=== PATIENT | male | born 1995 | race Caucasian/White ===

== ENCOUNTER 2023-09-18 12:09 | Emergency (ER) | payer MEDICARE, MEDICAID, SELFPAY ==
[2023-09-18 12:11] VITALS: BP 125/95; PULSE 100; RESP 16; TEMP 36.4; O2SAT 100; BMI 27.8
--- NOTE | 2023-09-18 13:04 | EKG12_ITS ---
Test Reason : PALP Blood Pressure : / mmHG Vent. Rate : 101 BPM Atrial Rate : 101 BPM P-R Int : 134 ms QRS Dur : 084 ms QT Int : 334 ms P-R-T Axes : 056 031 037 degrees QTc Int : 433 ms Sinus tachycardia Otherwise normal ECG Confirmed by Tre Candelario ([id number]), assignment desk editor TONG MIGUEL ([id number]) on 09/19/2023 8:33:06 AM Referred By: Confirmed By:Tre Candelario
--- NOTE | 2023-09-18 13:11 | ED.VIS.CHEST ---
HPI History of Present Illness Chief Complaint: Palpitations Informant: patient Onset/Context/Timing Onset: Today, Hours and - (11:30 AM today at workshop.) Activity at onset: sudden Timing: Continuous Current Severity: Mild Maximum Severity: Mild Relieved By: Nothing Associated Symptoms: Negative for Nausea, Vomiting, Diaphoresis, Dyspnea, Cough, Fever, Lightheadedness, Acid Reflux or Palpitations Narrative Narrative: 28-year-old male history of PTSD and OCD. Was at workshop today resulting in palpitations. Denies any chest pain. No shortness of breath. He did not lose consciousness. Been well recently did run out of 1 episode of diarrhea in the last couple days. No melena. No history of cardiac disease. No chest pain. No hemoptysis. No leg pain or swelling. Prior Similar Symptoms: Yes and No Recent Illness/Hospitalization: No CVD Risk Factors: Negative for Hypertension or Diabetes PE Risk Factors: Negative for Recent Travel/Surgery, Recent Immobilization, Prior DVT or PE, Cancer or OCP + Smoking + >/=35 TAD Risk Factors: Negative for Marfan's Syndrome, Hypertension or Family History [facility] Medical History (Updated 09/18/23 @ 14:[address] Dawson Barnett MD) Idiopathic moderate intellectual disability PTSD (post-traumatic stress disorder) Allergy/AdvReac Type Severity Reaction Status Date / Time Seasonal Allergies: Uncoded AdvReac RUNNY NOSE Verified 09/18/23 12:14 Social History Smoking Status: Never smoker ROS ROS ED ROS Narrative No recent illness other than mild diarrhea yesterday. Review of Systems ROS Unobtainable: Denies due to encephalopathy Constitutional Constitutional ED: Denies chills or fever(s) Eyes Eyes: Reports none ENT ENT ED: Denies ear pain Cardiovascular Cardiovascular: Reports as per HPI and palpitations; Denies chest pain Respiratory/Chest Respiratory/Chest: Denies cough, dyspnea or dyspnea on exertion Gastrointestinal Gastrointestinal: Denies abdominal pain Genitourinary Genitourinary ED: Denies dysuria or hematuria Musculoskeletal Musculoskeletal: Denies arthralgias, back pain or myalgias Integumentary Denies abscess or Abrasions Neurologic Neurologic: Denies headache(s) Psychiatric Psychiatric: Denies anxiety Endocrine Endocrinology: Denies cold intolerance Hematologic/Lymphatic Hematologic/Lymphatic: Denies easy bleeding, easy bruising or lymphadenopathy Allergic/Immunologic Allergic/Immunologic ED: Denies mouth swelling, tongue swelling or urticaria EXAM Physical Exam Narrative Exam Narrative: Well-appearing 28-year-old male. Vital signs stable afebrile. Pulse ox 100% room air no signs of hypoxia. Pulse 100. H EENT exam unremarkable. Neck nontender no JVD. No lymphadenopathy. No thyromegaly. Lungs clear to auscultation bilaterally. Heart regular rate and rhythm rate about 95 no murmur. Chest wall and ribs nontender. Abdomen soft nontender. Moving all 4 extremities. Calves are nontender without edema or cords. 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 Dorsi plantarflexion intact. Equal symmetrical radial pulses. Neurologically is awake and alert with no focal motor deficits. Const Vital Signs: 09/18/23 12:11 09/18/23 13:15 Temperature 97.6 F L Temperature Source Temporal Pulse Rate 100 Respiratory Rate 16 Blood Pressure 125/95 H Blood Pressure Mean 105 Pulse Ox 100 Oxygen Delivery Method Room Air Room Air Positive well nourished and well developed; Negative for obese, cachectic, contractures or unkempt General Appearance ED: well developed and NAD; Negative for unkempt, cachectic, contractures or pallor Nutritional Appearance: Negative for cachectic or obese HEENT Reports moist mucous membranes; Denies dry mucous membranes normocephalic and atraumatic; Negative for trauma or tenderness Mouth ED: No dry mucous membranes Mouth: No dry mucous membranes Eyes PERRL and EOMs intact bilaterally General Eye ED: Negative for pale conjunctiva, scleral icterus or other Neck no lymphadenopathy, supple and no JVD General: Negative for tenderness Chest Wall inspection of chest normal and palpation of chest normal Chest: Negative for tenderness Resp normal respiratory effort and clear to auscultation bilaterally Effort and Inspection: Negative for respiratory distress Auscultation: Negative for rales, rhonchi, wheezes or diminished lung sounds Cardio regular rate, regular rhythm, S1 normal heart sound, S2 normal heart sound and no murmurs Rate: Negative for bradycardia or tachycardic Rhythm: Negative for abnormal rhythm Peripheral Pulses: pulses 2+ throughout GI normal to inspection, nondistended, normoactive bowel sounds, soft to palpation, non-tender, non-distended and no masses Back/Spine no CVA tenderness and no thoracic nor lumbar tenderness General Back: Negative for CVA tenderness Cervical Spine: Negative for cervical spine tenderness Extremity normal to inspection General Extremety ED: Negative for pulses abnormal or tenderness General Extremity: Negative for pulses abnormal Neuro oriented x3 and CN's II-XII intact bilaterally Sensorium / Orientation: awake, alert, oriented to person, oriented to place and oriented to time; Negative for confused, lethargic, stuporous or other Motor Exam: strength 5/5 throughout Psych mental status grossly normal Appearance: Negative for unkempt Attitude: No agitated Mood & Affect: Negative for depressed, anxious or tearful Skin no rashes or lesions noted and no wounds General Skin Exam: Negative for jaundice or pallor Rashes: No rashes noted Trauma: Negative for abrasion, laceration or puncture MDM MDM MDM Narrative Medical decision making narrative: 28-year-old male with palpitations. Exam is normal. Undergo cardiac workup. Repeat exam patient is doing well at 2:14 PM. Vital signs are stable. Heart rates unremarkable. We went over his test results. He will be discharged home. History & Record Review Discussion w/independent historian: Patient Additional record(s) reviewed:: Prior inpatient record, Prior outpatient record, Prior ED visit and Prior labs Lab Data Attestation: I reviewed the patient's lab results. Lab results narrative: CBC shows white count 6.7. H&H 12.8 and 38.9. Platelets 266. Electrolytes unremarkable gap 5. Normal BUN 9 creatinine 0.99. Glucose 139. Troponin less than 3. Chest x-ray unremarkable. Normal cardiac silhouette and lung haile. Labs: Laboratory Results - last 24 hr 09/18/23 13:12 WBC 6.7 RBC 4.19 L Hgb 12.8 L Hct 38.9 L MCV 92.8 MCH 30.5 MCHC 32.9 RDW Std Deviation 47.3 H RDW Coeff of Hakan 13.9 Plt Count 266 MPV 9.5 Immature Gran % (Auto) 0.900 Neut % (Auto) 66.7 Lymph % (Auto) 22.3 [place] % (Auto) 7.9 Eos % (Auto) 1.3 Baso % (Auto) 0.9 Absolute Neuts (auto) 4.4 Absolute Lymphs (auto) 1.49 Nucleated RBC % 0 Sodium 138 Potassium 4.2 Chloride 106 Carbon Dioxide 27.0 Anion Gap 5 BUN 9 Creatinine 0.99 Estim Creat Clear Calc 112.90 Est GFR (MDRD) Af Amer 115 Est GFR (MDRD) Non-Af 95 BUN/Creatinine Ratio 9.1 L Glucose 139 H Calcium 9.1 Troponin I High Sens < 3 L Radiography Chest X-Ray - ED: 1 View, Read by ED Physician, Read by Radiologist, Normal, Heart, Lungs, Mediastinum, Bony Structures and No Acute Disease Diagnostic Testing: Clinical Impression(s) from Imaging Studies Chest X-Ray 09/18/23 13:13 IMPRESSION: Normal x-ray examination of the chest. Electronically Signed: Ortiz Kerns MD at 13:37 EDT Reading Location ID and State: [id number] [place] [address] , Service support , Chest x-ray, portable, single view interpreted by myself and the radiologist shows no acute abnormality. Normal cardiac silhouette. Normal lung haile. Rhythm Strip Rhythm Strip: Sinus Tach Rate: 101 Ectopy: None EKG Initial EKG: Attestation: I personally reviewed and interpreted this EKG as follows: Interpretation: Sinus Rhythm, No Acute Injury Pattern and Sinus Tachycardia Comments: Sinus tachycardia rate of 101 no acute signs of MT nor ischemia. No dysrhythmia. Discharge Plan Triage Chief Complaint: Palpitations ED Provider: Dawson Barnett Dx/Rx/DC Orders Clinical Impression: Heart palpitations Instructions: ED Palpitations Primary Care Provider: Husam Pérez NP Referrals: Husam Pérez COMPLIANCE ASSISTANT, COMPLIANCE ASSISTANT-C [Primary Care Provider] - As Needed Activity Restrictions/Additional Instructions: Follow-up with your primary care provider as needed. Your labs, x-ray and EKG were all normal today. Print Language: Wolof Disposition Disposition: Home, Self Care
--- NOTE | 2023-09-18 13:13 | RAD_ITS ---
STUDY: X-RAY CHEST REASON FOR EXAM: Male, 28 years old. Chest pain. TECHNIQUE: Single frontal view of the chest. COMPARISON: None. FINDINGS: The lungs are clear and expanded. There is no demonstrated pleural abnormality. Normal size heart. Normal mediastinum and alexi. Normal visualized pulmonary arteries. Normal visualized aortic arch and descending thoracic aorta. No abnormality of the visualized soft tissue structures of the upper abdomen. RAD/Chest 1 View (Portable) IMPRESSION: Normal x-ray examination of the chest. Electronically Signed: Ortiz Kerns MD at 13:37 EDT ,
[2023-09-18 13:18] LABS: Absolute Lymphocyte Count 1.49 X10^3/uL (0.83-4.51); Absolute Neutrophil Count 4.4 X10^3/uL (2.0-7.7); Basophil# 0.06 X10^3/uL; Basophil% 0.9 % (0-1); Eosinophil# 0.09 X10^3/uL; Eosinophils% 1.3 % (0-5); Hematocrit 38.9 % (40-54); Hemoglobin 12.8 g/dL (13.0-16.5); Lymphocyte # 1.49 X10^3/ul (0.83-4.51); Lymphocyte % 22.3 % (19-41); Mean Corp Hgb Conc 32.9 g/dL (32-36); Mean Corpuscular Hgb 30.5 pg (27.0-32.0); Mean Corpuscular Volume 92.8 fL (80-94); Mean Platelet Vol. 9.5 fl (6.2-12.0); Monocyte# 0.53 X10^3/uL; Monocyte% 7.9 % (0-10); NRBC Flagged by Analyzer 0 % (0-5); Neutrophil # 4.44 X10^3/uL (2.7-7.7); Neutrophil % 66.7 % (47-70); Platelet Count 266 K/mm3 (150-450); RBC Distribution Width CV 13.9 % (11.6-14.6); RBC Distribution Width SD 47.3 fl (35.1-43.9); Red Blood Count 4.19 M/mm3 (4.6-6.2); White Blood Count 6.7 K/mm3 (4.4-11.0)
--- NOTE | 2023-09-18 13:29 | ED.RN ---
NO OLD EKGS
[2023-09-18 13:42] LABS: Anion Gap 5 (5-15); BUN 9 mg/dL (7-18); BUN/Creat Ratio 9.1 RATIO (10-20); Calcium,Total 9.1 mg/dL (8.5-10.1); Chloride 106 mmol/L (98-107); Creatinine, Serum 0.99 mg/dL (0.70-1.30); EST Glomerular Filtration Rate 95 mL/min (>60); Est Glom Filt Rate - Afr Amer 115 mL/min (>60); Glucose 139 mg/dL (74-106); Potassium 4.2 mmol/L (3.5-5.1); Sodium Level 138 mmol/L (136-145); Troponin-I HS < 3 pg/mL (3.0-78.0)
[2023-09-18 14:25] VITALS: BP 114/74; PULSE 93; RESP 23; TEMP 36.4; O2SAT 100
== END 2023-09-18 14:27 | disposition home or self-care (01) ==
PROVIDERS: Emergency Provider Emergency Medicine; PCP Nurse Practitioner Family; Visit Provider Emergency Medicine
DX: R00.2 Palpitations (principal)
CPT/HCPCS: 71045; 80048; 84484; 85025; 93005; 99284; A4216

== ENCOUNTER 2024-04-12 08:36 | Emergency (ER) | payer MEDICARE, MEDICAID, SELFPAY ==
[2024-04-12 08:36] VITALS: BP 125/90; PULSE 112; RESP 18; TEMP 36.6; O2SAT 100
[2024-04-12 08:39] VITALS: BMI 30.1
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
[2024-04-12 09:09] VITALS: BP 125/90; PULSE 95; RESP 16; TEMP 36.7; O2SAT 100
== END 2024-04-12 09:17 | disposition home or self-care (01) ==
LOC: ED 09:11
PROVIDERS: Emergency Provider Emergency Medicine; PCP Nurse Practitioner Family; Visit Provider Emergency Medicine
DX: S29.011A Strain of muscle and tendon of front wall of thorax, initial encounter (principal); S29.012A Strain of muscle and tendon of back wall of thorax, initial encounter; V58.1XXA Passenger in pick-up truck or van injured in noncollision transport accident in nontraffic accident, initial encounter; Z79.899 Other long term (current) drug therapy
CPT/HCPCS: 99282

== ENCOUNTER 2024-05-09 08:16 | Outpatient (CLI) | payer MEDICARE, MEDICAID, SELFPAY ==
[2024-05-09 12:41] LABS: Valproic Acid (Depakene) Level 47 ug/mL (50-100)
[2024-05-09 12:45] LABS: ALB/GLOB Ratio 1.2 RATIO (0.9-2.4); AST(SGOT) 15 U/L (15-37); Alanine Aminotransfer ALT/SGPT 25 U/L (16-61); Albumin, Serum 3.8 g/dL (3.2-5.0); Alkaline Phosphatase 53 U/L (45-117); Anion Gap 6 (5-15); BUN 8 mg/dL (7-18); BUN/Creat Ratio 8.4 RATIO (10-20); Calcium,Total 9.2 mg/dL (8.5-10.1); Chloride 105 mmol/L (98-107); Creatinine, Serum 0.96 mg/dL (0.70-1.30); EST Glomerular Filtration Rate 99 mL/min (>60); Est Glom Filt Rate - Afr Amer 120 mL/min (>60); Globulin 3.1 g/dL (2.2-4.2); Glucose 87 mg/dL (74-106); Protein, Total 6.9 g/dL (6.4-8.2); Sodium Level 140 mmol/L (136-145)
[2024-05-09 12:51] LABS: Absolute Lymphocyte Count 1.97 X10^3/uL (0.83-4.51); Absolute Neutrophil Count 1.9 X10^3/uL (2.0-7.7); Basophil# 0.05 X10^3/uL; Basophil% 1.1 % (0-1); Eosinophil# 0.21 X10^3/uL; Eosinophils% 4.6 % (0-5); Hematocrit 40.8 % (40-54); Hemoglobin 13.4 g/dL (13.0-16.5); Lymphocyte # 1.97 X10^3/ul (0.83-4.51); Lymphocyte % 42.8 % (19-41); Mean Corp Hgb Conc 32.8 g/dL (32-36); Mean Corpuscular Hgb 30.5 pg (27.0-32.0); Mean Corpuscular Volume 92.9 fL (80-94); Mean Platelet Vol. 10.1 fl (6.2-12.0); Monocyte# 0.46 X10^3/uL; NRBC Flagged by Analyzer 0 % (0-5); Neutrophil # 1.89 X10^3/uL (2.7-7.7); Neutrophil % 41.1 % (47-70); Platelet Count 301 K/mm3 (150-450); RBC Distribution Width CV 12.6 % (11.6-14.6); RBC Distribution Width SD 43.1 fl (35.1-43.9); Red Blood Count 4.39 M/mm3 (4.6-6.2); White Blood Count 4.6 K/mm3 (4.4-11.0)
== END 2024-05-09 23:59 | disposition home or self-care (01) ==
LOC: LABSPEC 08:17
PROVIDERS: PCP Nurse Practitioner Family; Visit Provider Internal Medicine
DX: F90.9 Attention-deficit hyperactivity disorder, unspecified type (principal); F39 Unspecified mood [affective] disorder; F42.9 Obsessive-compulsive disorder, unspecified
CPT/HCPCS: 80053; 80164; 85025

== ENCOUNTER → 2024-08-01 | Outpatient (CLI) | payer MEDICARE, MEDICAID, SELFPAY ==
[2024-08-01 12:31] LABS: Hematocrit 36.6 % (40-54); Mean Corp Hgb Conc 32.8 g/dL (32-36); Mean Corpuscular Hgb 30.3 pg (27.0-32.0); Mean Corpuscular Volume 92.4 fL (80-94); Mean Platelet Vol. 10.5 fl (6.2-12.0); Platelet Count 280 K/mm3 (150-450); RBC Distribution Width CV 13.2 % (11.6-14.6); RBC Distribution Width SD 44.7 fl (35.1-43.9); Red Blood Count 3.96 M/mm3 (4.6-6.2); White Blood Count 4.9 K/mm3 (4.4-11.0)
[2024-08-01 13:11] LABS: ALB/GLOB Ratio 1.8 RATIO (0.9-2.4); AST(SGOT) 17 U/L (<=37); Alanine Aminotransfer ALT/SGPT 19 U/L (<=46); Albumin, Serum 4.1 g/dL (3.5-5.0); Alkaline Phosphatase 53 U/L (40-129); Anion Gap 14 (5-15); BUN 6 mg/dL (4-19); Calcium,Total 9.5 mg/dL (7.6-11.0); Chloride 102 mmol/L (98-108); Creatinine, Serum 0.88 mg/dL (0.70-1.20); EST Glomerular Filtration Rate 119 (>60); Globulin 2.3 g/dL (2.2-4.2); Glucose 146 mg/dL (70-99); Potassium 3.5 mmol/L (3.3-5.1); Protein, Total 6.4 g/dL (5.9-8.4); Sodium Level 139 mmol/L (133-145); Total Bilirubin 0.33 mg/dL (0.00-1.30); Valproic Acid (Depakene) Level 47 ug/mL (50-100)
== END | disposition home or self-care (01) ==
LOC: LABSPEC 08:32
PROVIDERS: PCP Nurse Practitioner Family; Referring Provider Internal Medicine; Visit Provider Internal Medicine
DX: F90.9 Attention-deficit hyperactivity disorder, unspecified type (principal); F39 Unspecified mood [affective] disorder; F42.9 Obsessive-compulsive disorder, unspecified
CPT/HCPCS: 80053; 80164; 85027

== ENCOUNTER → 2024-10-24 | Outpatient (CLI) | payer MEDICARE, MEDICAID, SELFPAY ==
--- OUTSIDE RECORDS SUMMARY | 2024-10-24 07:37 | XMS RPT_ITS | CCD ---
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 2.2-4.2 [facility] Comment on above: Performed By: #### L 501.8100, [id number], L100.0500 #### [facility] [address] [place], [address] Glucose [Mass/Vol] 146 mg/dL High 70-99 [facility] [place] [facility] Comment on above: Performed By: #### L [id number], [id number], L100.0500 #### [facility] [address] [place], [address] Potassium [Moles/Vol] 3.5 mmol/L Normal 3.3-5.1 [facility] Comment on above: Performed By: #### L 501.8100, [id number], L100.0500 #### [facility] [address] [place], [address] Sodium [Moles/Vol] 139 mmol/L Normal 133-145 [facility] [place] [facility] Comment on above: Performed By: #### L 501.8100, [id number], L100.0500 #### [facility] [address] [place], [address] T PROT 6.4 g/dL Normal 5.9-8.4 [facility] Comment on above: Performed By: #### L [id number], [id number], L100.0500 #### [facility] [address] [place], [address] Urea nitrogen [Mass/Vol] 6 mg/dL Normal 4-19 [facility] Comment on above: Performed By: #### L [id number], [id number], L100.0500 #### [facility] [address] [place], [address] Erythrocyte distribution wid th ratioOrdered By: Mendez Kumar on 08-01-2024 Erythrocyte distribution width (RBC) [Ratio] 13.2 % 11.6-14.6 [facility] Erythrocyte distribution wid th standard deviationOrdered By: Mendez Kumar on 08-01-2024 Erythrocyte distribution width (RBC) [Ratio] 44.7 fl High 35.1-43.9 [facility] Glomerular filtration rate ( GFR) estimation/1.73 sq m using serum, plasma, or whole bOrdered By: Mendez Kumar on 08-01-2024 GFR/1.73 sq M.predicted among non-blacks MDRD (S/P/Bld) [Vol rate/Area] 119 mL/min/{1.73_m2} >60 [facility] Comment on above: mL/min/1.73m2 CKD-EP I Creatinine Equation (2020) Hematocrit Auto (Bld) [Volum e fraction]Ordered By: Mnedez Kumar on 08-01-2024 Hematocrit (Bld) [Volume fraction] 36.6 % Low 40-54 [facility] Hemoglobin measurementOrdere d By: Mendez Kumar on 08-01-2024 Hemoglobin (Bld) [Mass/Vol] 12.0 g/dL Low 13.0-16.5 [facility] Laboratory - Chemistry and C hemistry - challengeOrdered By: Mendez Kumar on 08-01-2024 AST [Catalytic activity/Vol] 17 U/L <38 [facility] MCV (mean corpuscular volume ) determinationOrdered By: Mendez Kumar on 08-01-2024 MCV (RBC) [Entitic vol] 92.4 fL 80-94 [facility] Mean corpuscular hemoglobin (MCH) determinationOrdered By: Mendez Kumar on 08-01-2024 MCH (RBC) [Entitic mass] 30.3 pg 27.0-32.0 [facility] Mean corpuscular hemoglobin concentration (MCHC) determinationOrdered By: Mendez Kumar on 08-01-2024 MCHC (RBC) [Mass/Vol] 32.8 g/dL 32-36 [facility] Mean platelet volume determi nationOrdered By: Mendez Kumar on 08-01-2024 Platelet mean volume (Bld) [Entitic vol] 10.5 fL 6.2-12.0 [facility] Platelet countOrdered By: Rosalina Kumar on 08-01-2024 Platelets (Bld) [#/Vol] 280 10*3/uL 150-450 [facility] Potassium measurement (mass/ volume)Ordered By: Mendez Kumar on 08-01-2024 Potassium (Unsp spec) [Mass/Vol] 3.5 mmol/L 3.3-5.1 [facility] RBC Auto (Bld) [#/Vol]Ordere d By: Mendez Kumar on 05-15-2025 RBC (Bld) [#/Vol] 3.96 10*6/uL Low 4.6-6.2 [facility] Serum creatinine measurement (mass/volume)Ordered By: Mendez Kumar on 08-01-2024 Creatinine [Mass/Vol] 0.88 mg/dL 0.70-1.20 [facility] Serum globulin measurementOr dered By: Mendez Kumar on 08-01-2024 Globulin (S) [Mass/Vol] 2.3 g/dL 2.2-4.2 [facility] Serum glucose measurement (m ass/volume)Ordered By: Mendez Kumar on 08-01-2024 Glucose [Mass/Vol] 146 mg/dL High 70-99 [facility] [place] [facility] Serum or plasma alanine mendosa otransferase (ALT) measurementOrdered By: Mendez Kumar on 08-01-2024 ALT [Catalytic activity/Vol] 19 U/L <47 [facility] Serum or plasma albumin rina urement (mass/volume)Ordered By: Mendez Kumar on 08-01-2024 Albumin [Mass/Vol] 4.1 g/dL 3.5-5.0 [facility] [place] [facility] Serum or plasma albumin/glob ulin mass ratioOrdered By: Mendez Kumar on 08-01-2024 Albumin/Globulin [Mass ratio] 1.8 {ratio} 0.9-2.4 [facility] Serum or plasma alkaline brandie sphatase measurementOrdered By: Mendez Kumar on 08-01-2024 ALP [Catalytic activity/Vol] 53 U/L 40-129 [facility] Serum or plasma calcium rina urement (mass/volume)Ordered By: Mendez Kumar on 08-01-2024 Calcium [Mass/Vol] 9.5 mg/dL 7.6-11.0 [facility] [place] [facility] Serum or plasma urea nitroge n measurement (mass/volume)Ordered By: Mendez Kumar on 08-01-2024 Urea nitrogen [Mass/Vol] 6 mg/dL 4-19 [facility] Serum or plasma valproate me asurement (mass/volume)Ordered By: Mendez Kumar on 08-01-2024 Valproate [Mass/Vol] 47 ug/mL Low 50-100 [facility] Comment on above: Valproic Acid concen trations >100 ug/mL are potentially toxic. Sodium levelOrdered By: Zan Kumar on 08-01-2024 Sodium [Moles/Vol] 139 mmol/L 133-145 [facility] [place] [facility] Total proteinOrdered By: Asher Kumar on 08-01-2024 Protein [Mass/Vol] 6.4 g/dL 5.9-8.4 [facility] [place] [facility] Valproic Acid (Depakene) Lev linsey 08-01-2024 VALPROIC ACID 47 ug/mL Low 50-100 [facility] Comment on above: Result Comment: Valp roic Acid concentrations >100 ug/mL are potentially toxic. Performed By: #### L [id number], L500.4050, L100.0500 #### [facility] [address] [place], [address] White blood cell (WBC) count Ordered By: Mendez Kumar on 08-01-2024 WBC (Bld) [#/Vol] 4.9 10*3/uL 4.4-11.0 [facility] [place] [facility] .GFRon 06-20-2024 Estimated Glomerular Filtration Rate 99 ml/min/1.73sqm Normal [facility] Comment on above: Result Comment: Stages of Chronic Kidney Disease (CKD) Stage Description eGFR(ml/min/1.73 sq.m.) CKD 1 Normal kidney function or >=90 normal kindney function with possible kidney damage (ex. Proteinuria) CKD 2 Kidney damage with mild loss 60-89 of kidney function CKD 3a Mild to moderate loss of kidney 45-59 function CKD 3b Moderate to severe loss of 30-44 of kindey function CKD 4 Severe loss of kidney function 15-29 CKD 5 Kidney failure <15 Note: (go live 2024) the eGFR calculation was updated to the 2020 CKD-EPI creatinine equation without a race factor to calculate the eGFR results. Performed By: #### L IPID, GFR, A1C, CMP, TSH, FT4, DLDL #### [facility] [address] [place], [place] [address] A1Con 06-20-2024 Glucose [Mass/Vol] 100 mg/dL Normal [facility] Comment on above: Result Comment: Luz Maria mated Average Glucose calculated by equation ((28.7xA1C)-46.7) Estimated average glucose (eAG) is a calculated value from Hemoglobin A1C and is congressional representative of the average blood glucose level in the last 2-3 month period. Normal range: less than 114 mg/dL Performed By: #### L IPID, GFR, A1C, CMP, TSH, FT4, DLDL #### [address] [address] HbA1c (Bld) [Mass fraction] 5.1 % Normal 4.3-6.4 [facility] Comment on above: Performed By: #### L IPID, GFR, A1C, CMP, TSH, FT4, DLDL #### [address] [address] CMPon 06-20-2024 Albumin Level 3.9 G/dL Normal 3.5-5.0 [facility] Comment on above: Performed By: #### L IPID, GFR, A1C, CMP, TSH, FT4, DLDL #### [address] [address] Albumin/Globulin [Mass ratio] 1.2 {ratio} Normal 1.1-2.5 [facility] Comment on above: Performed By: #### L IPID, GFR, A1C, CMP, TSH, FT4, DLDL #### [address] [address] ALP [Catalytic activity/Vol] 66 U/L Normal 40-135 [facility] Comment on above: Performed By: #### L IPID, GFR, A1C, CMP, TSH, FT4, DLDL #### [address] [address] ALT [Catalytic activity/Vol] 31 U/L Normal 16-63 [facility] Comment on above: Performed By: #### L IPID, GFR, A1C, CMP, TSH, FT4, DLDL #### [address] [address] AST [Catalytic activity/Vol] 18 U/L Normal 10-40 [facility] Comment on above: Performed By: #### L IPID, GFR, A1C, CMP, TSH, FT4, DLDL #### [address] [address] Bili Total 0.3 mg/dL Normal 0.2-1.0 [facility] Comment on above: Result Comment: Use of this assay is not recommended for patients undergoing treatment with eltrombopag due to the potential for falsely elevated results. Performed By: #### L IPID, GFR, A1C, CMP, TSH, FT4, DLDL #### [address] [address] BUN/Creatinine Ratio 7 ratio Normal 7-27 [facility] Comment on above: Performed By: #### L IPID, GFR, A1C, CMP, TSH, FT4, DLDL #### [address] [address] Calcium [Mass/Vol] 8.6 mg/dL Normal 8.4-10.2 [facility] Comment on above: Performed By: #### L IPID, GFR, A1C, CMP, TSH, FT4, DLDL #### [address] [address] Chloride [Moles/Vol] 104 mmol/L Normal 98-107 [facility] Comment on above: Performed By: #### L IPID, GFR, A1C, CMP, TSH, FT4, DLDL #### [address] [address] CO2 [Moles/Vol] 28 mmol/L Normal 22-29 [facility] Comment on above: Performed By: #### L IPID, GFR, A1C, CMP, TSH, FT4, DLDL #### [address] [address] Creatinine [Mass/Vol] 1.05 mg/dL Normal 0.70-1.30 [facility] Comment on above: Result Comment: Test ing performed on Siemens Dimension EXL analyzer using a modified kinetic Robbie technique. Performed By: #### L IPID, GFR, A1C, CMP, TSH, FT4, DLDL #### [address] [address] Electrolyte Balance 7.0 mEq/L Normal 4.0-15.0 [facility] Comment on above: Performed By: #### L IPID, GFR, A1C, CMP, TSH, FT4, DLDL #### [address] [address] Globulin 3.3 G/dL Normal 1.5-3.8 [facility] Comment on above: Performed By: #### L IPID, GFR, A1C, CMP, TSH, FT4, DLDL #### [address] [address] Glucose [Mass/Vol] 143 mg/dL High 70-105 [facility] Comment on above: Performed By: #### L IPID, GFR, A1C, CMP, TSH, FT4, DLDL #### [address] [address] Potassium [Moles/Vol] 4.0 mmol/L Normal 3.5-5.1 [facility] Comment on above: Performed By: #### L IPID, GFR, A1C, CMP, TSH, FT4, DLDL #### [address] [address] Sodium [Moles/Vol] 139 mmol/L Normal 136-145 [facility] Comment on above: Performed By: #### L IPID, GFR, A1C, CMP, TSH, FT4, DLDL #### [address] [address] Total Protein 7.2 G/dL Normal 6.4-8.2 [facility] Comment on above: Performed By: #### L IPID, GFR, A1C, CMP, TSH, FT4, DLDL #### [address] [address] Urea nitrogen [Mass/Vol] 7 mg/dL Normal 7-18 [facility] Comment on above: Performed By: #### L IPID, GFR, A1C, CMP, TSH, FT4, DLDL #### [address] [address] DLDLon 06-20-2024 Direct LDL Cholesterol 102 mg/dL High 0-99 [facility] Comment on above: Result Comment: Dire ct LDL Cholesterol Reference Interval: Optimal: <100 mg/dL Near Optimal/above optimal: 100-129 mg/dL Borderline high: 130-159 mg/dL High: 160-189 mg/dL Very high: >=190 mg/dL Performed By: #### L IPID, GFR, A1C, CMP, TSH, FT4, DLDL #### [address] [address] FT4on 06-20-2024 Free T4 [Mass/Vol] 0.73 ng/dL Low 0.76-1.46 [facility] Comment on above: Performed By: #### L IPID, GFR, A1C, CMP, TSH, FT4, DLDL #### [address] [address] LIPIDon 06-20-2024 Cholesterol [Mass/Vol] 157 mg/dL Normal 0-200 [facility] Comment on above: Result Comment: Chol esterol Reference Interval: Less than 200 Desirable 200-239 Borderline high risk 240 and above High risk Performed By: #### L IPID, GFR, A1C, CMP, TSH, FT4, DLDL #### [address] [address] Cholesterol in HDL [Mass/Vol] 12 mg/dL Low 40-60 [facility] Comment on above: Performed By: #### L IPID, GFR, A1C, CMP, TSH, FT4, DLDL #### [address] [address] LDL Cholesterol Not Valid Normal 0-130 [facility] Comment on above: Result Comment: Trig lyceride >400 invalidates the calculated LDL. Performed By: #### L IPID, GFR, A1C, CMP, TSH, FT4, DLDL #### [address] [address] Triglyceride [Mass/Vol] 432 mg/dL High 0-150 [facility] Comment on above: Result Comment: Trig lyceride Reference Interval: Less than 150 Normal 150-199 Borderline high risk 200-499 High risk 500 or higher Very high risk Performed By: #### L IPID, GFR, A1C, CMP, TSH, FT4, DLDL #### [address] [place], [place] [address] TSHon 06-20-2024 TSH Qn 2.42 m[IU]/L Normal 0.36-3.74 [facility] Comment on above: Performed By: #### L IPID, GFR, A1C, CMP, TSH, FT4, DLDL #### [address] [place], [place] [address] CNOVon 05-28-2024 CNOV Office Visit (UCTR ) ANNA KOENIG ([id number]) 1995 M Date Time Provider Department 05/28/24 4:30 PM [facility] During your visit today, we recorded the following information about you: Temperature Pulse Respiration Blood pressure 97.3 degrees 97/minute 20/minute 116/79 Weight 86 kg Edson Whyte APRN.CNP 05/28/2024 4:55 PM Signed ASSESSMENT/PLAN: 1. Ingrowing toenail - ICD9: 703.0, ICD10: L60.0 -use medication as prescribed -foot soaks as discussed Call podiatry for appointment in 1 week Urgent follow up for severe or worsening symptoms. - CEPHALEXIN 500 MG CAPSULE - CONSULT TO PODIATRY Edson Whyte APRN.CNP 05/28/2024 5:46 PM Signed [facility] Subjective HPI Anna Myers Arya is a 29 year old male who presents today for CC of left great toe pain/infection. This started 1 day ago. Has tried otc medication for relief. Symptoms are worsened by touching/walking. Risk factors hx of multiple ingrown toenail. Denies fever. .Patient presents with: Ingrown Toenail: Left foot great, redness, swelling x 1 day No past medical history on file. No past surgical history on file. ALLERGIES Patient has no known allergies. MEDICATIONS fenofibrate nanocrystallized (TRICOR) 145 mg tablet Take 145 mg by mouth once daily. acetylcysteine (NAC) 600 mg capsule Take 1,200 mg by mouth two times a day. omeprazole (PRILOSEC) 40 mg capsule Take 20 mg by mouth once daily. amphetamine-dextroamp hetamine XR (ADDERALL XR) 20 mg capsule Take 25 mg by mouth once daily. amphetamine-dextroamp hetamine XR (ADDERALL XR) 15 mg capsule Take 15 mg by mouth once daily. In the afternoon levothyroxine 25 mcg cap Take 25 mcg by mouth daily before breakfast. divalproex ER (DEPAKOTE ER) 250 mg 24 hr tablet Take 500 mg by mouth two times a day. fluticasone (FLONASE) 50 mcg/actuation nasal spray LINZESS 145 mcg capsule montelukast (SINGULAIR) 10 mg tablet paliperidone ER (INVEGA) 6 mg 24 hr tablet Take 6 mg by mouth once daily. QUEtiapine XR (SEROQUEL XR) 400 mg 24 hr tablet cephALEXin (KEFLEX) 500 mg capsule Take 1 capsule by mouth three times a day for 5 days. cetirizine (ZYRTEC) 10 mg tablet Take 10 mg by mouth once daily. (Patient not taking: Reported on 05/28/2024) FLUoxetine (PROZAC) 10 mg capsule (Patient not taking: Reported on 05/28/2024) guanFACINE (TENEX) 1 mg tablet (Patient not taking: Reported on 10/14/2023) guanFACINE (TENEX) 2 mg tablet (Patient not taking: Reported on 06/16/2022) No family history on file. Social History Tobacco Use Smoking status: Never Smokeless tobacco: Never Patient presents with: Ingrown Toenail: Left foot great, redness, swelling x 1 day HPI Review of Systems Objective BP 116/79 Pulse 97 Temp 36.3 ?C (97.3 ?F) Resp 20 Wt 86 kg (189 lb 9.5 oz) SpO2 99% Physical Exam Constitutional: General: He is not in acute distress. Appearance: He is not toxic-appearing or diaphoretic. HENT: Head: Normocephalic and atraumatic. Pulmonary: Effort: Pulmonary effort is normal. No accessory muscle usage or respiratory distress. Musculoskeletal: Feet: Neurological: Mental Status: He is alert and oriented to person, place, and time. ASSESSMENT/PLAN: 1. Ingrowing toenail - ICD9: 703.0, ICD10: L60.0 -use medication as prescribed -foot soaks as discussed Call podiatry for appointment in 1 week Urgent follow up for severe or worsening symptoms. - CEPHALEXIN 500 MG CAPSULE - CONSULT TO PODIATRY Edson Whyte APRN.[employer] [facility] Procedures Allergies As of Date: 05/28/2024 (No Known Allergies) Date Reviewed: 05/28/2024 Reviewed by: Kaylen Bowie LPN - Fully Assessed Reason for Visit: Ingrown Toenail [111] Cmt: Left foot great, redness, swelling x 1 day Primary Visit Diagnosis:Ingrowing toenail [L60.0] Order(s):cephALEXin (KEFLEX) 500 mg capsuleTake 1 capsule by mouth three times a day for 5 days.Disp: 15 capsuleRfl: 0 CONSULT TO PODIATRY [[id number]] Order #: [id number]: 1 FUTURE Prescriptions as of 05/28/2024 - fenofibrate nanocrystallized (TRICOR) 145 mg tablet Take 145 mg by mouth once daily. - acetylcysteine (NAC) 600 mg capsule Take 1,200 mg by mouth two times a day. - omeprazole (PRILOSEC) 40 mg capsule Take 20 mg by mouth once daily. - cephALEXin (KEFLEX) 500 mg capsule Take 1 capsule by mouth three times a day for 5 days. - amphetamine-dextroamp hetamine XR (ADDERALL XR) 20 mg capsule Take 25 mg by mouth once daily. - amphetamine-dextroamp hetamine XR (ADDERALL XR) 15 mg capsule Take 15 mg by mouth once daily. In the afternoon - levothyroxine 25 mcg cap Take 25 mcg by mouth daily before breakfast. - cetirizine (ZYRTEC) 10 mg tablet Take 10 mg by mouth once daily. - divalproex ER (DEPAKOTE ER) 250 mg 24 hr tablet Take 500 mg by mouth two times a day. - FLUoxetine (PROZAC) 10 mg capsule - fluticasone (FLONA (more content not included)... Normal [facility] Absolute lymphocyte countOrd ered By: Mendez Kumar on 05-09-2024 Lymphocytes Auto (Unsp spec) [#/Vol] 1.97 10*3/uL 0.83-4.51 [facility] Absolute neutrophil countOrd ered By: Mendez Kumar on 05-09-2024 Neutrophils (Bld) [#/Vol] 1.9 10*3/uL Low 2.0-7.7 [facility] Albumin to globulin ratioOrd ered By: Mendez Kumar on 05-09-2024 Albumin/Globulin [Mass ratio] 1.2 {ratio} 0.9-2.4 [facility] Automated lymphocyte count a s percentage of total leukocytesOrdered By: Mendez Kumar on 05-09-2024 Lymphocytes/100 WBC Auto (Unsp spec) 42.8 % High 19-41 [facility] Basophil percentageOrdered B y: Mendez Kumar on 05-09-2024 Basophils/100 WBC (Bld) 1.1 % High 0-1 [facility] Bilirubin, totalOrdered By: Mendez Kumar on 05-09-2024 Bilirubin [Mass/Vol] 0.50 mg/dL 0.20-1.00 [facility] Comment on above: For patients on eltr ombopag therapy, use of Dimension Vale TBIL is not recommended. Blood urea nitrogen (BUN)/cr eatinine ratioOrdered By: Mendez José on 05-09-2024 Urea nitrogen/Creatinine [Mass ratio] 8.4 mg/mg Low 10-20 [facility] CBC W/Diff, Automatedon 04-21 Absolute Lymph 1.97 X10 3/uL Normal 0.83-4.51 [facility] Comment on above: Performed By: #### L 100.0100, L500.4050, L501.8100 #### [facility] [address] [place], [address] Absolute Neut 1.9 X10 3/uL Low 2.0-7.7 [facility] Comment on above: Performed By: #### L 100.0100, L500.4050, L501.8100 #### [facility] [address] [place], [address] Basophils/100 WBC (Bld) 1.1 % High 0-1 [facility] Comment on above: Performed By: #### L 100.0100, L500.4050, L501.8100 #### [facility] [address] [place], [address] Eosinophils/100 WBC (Bld) 4.6 % Normal 0-5 [facility] Comment on above: Performed By: #### L 100.0100, L500.4050, L501.8100 #### [facility] [address] [place], [address] Erythrocyte distribution width (RBC) [Ratio] 12.6 % Normal 11.6-14.6 [facility] Comment on above: Performed By: #### L 100.0100, L500.4050, L501.8100 #### [facility] [address] [place], [address] Hematocrit (Bld) [Volume fraction] 40.8 % Normal 40-54 [facility] Comment on above: Performed By: #### L 100.0100, L500.4050, L501.8100 #### [facility] [address] [place], [address] Hemoglobin (Bld) [Mass/Vol] 13.4 g/dL Normal 13.0-16.5 [facility] [facility] Comment on above: Performed By: #### L 100.0100, L500.4050, L501.8100 #### [facility] [address] [place], [address] IG% 0.400 Normal 0.0-0.9 [facility] Comment on above: Result Comment: IG% - Immature Granulocytes (promyelocytes, myelocytes and metamyelocytes) > 1% indicates that a LEFT SHIFT is Present. Performed By: #### L 100.0100, L500.4050, L501.8100 #### [facility] [address] [place], [address] Lymphocytes/100 WBC (Bld) 42.8 % High 19-41 [facility] Comment on above: Performed By: #### L 100.0100, L500.4050, L501.8100 #### [facility] [address] [place], [address] MCH (RBC) [Entitic mass] 30.5 pg Normal 27.0-32.0 [facility] Comment on above: Performed By: #### L 100.0100, L500.4050, L501.8100 #### [facility] [address] [place], [address] MCHC (RBC) [Mass/Vol] 32.8 g/dL Normal 32-36 [facility] Comment on above: Performed By: #### L 100.0100, L500.4050, L501.8100 #### [facility] [address] [place], [address] MCV (RBC) [Entitic vol] 92.9 fL Normal 80-94 [facility] Comment on above: Performed By: #### L 100.0100, L500.4050, L501.8100 #### [facility] [address] [place], [address] Monocytes/100 WBC (Bld) 10.0 % Normal 0-10 [facility] Comment on above: Performed By: #### L 100.0100, L500.4050, L501.8100 #### [facility] [address] [place], [address] Neutrophils/100 WBC (Bld) 41.1 % Low 47-70 [facility] Comment on above: Performed By: #### L 100.0100, L500.4050, L501.8100 #### [facility] [address] [place], [address] Nucleated RBC (Bld) [#/Vol] 0 10*3/uL Normal 0-5 [facility] Comment on above: Performed By: #### L 100.0100, L500.4050, L501.8100 #### [facility] [address] [place], [address] Platelet mean volume (Bld) [Entitic vol] 10.1 fL Normal 6.2-12.0 [facility] Comment on above: Performed By: #### L 100.0100, L500.4050, L501.8100 #### [facility] [address] [place], [address] Platelets (Bld) [#/Vol] 301 10*3/uL Normal 150-450 [facility] Comment on above: Performed By: #### L 100.0100, L500.4050, L501.8100 #### [facility] [address] [place], [address] RBC (Bld) [#/Vol] 4.39 10*6/uL Low 4.6-6.2 [facility] Comment on above: Performed By: #### L 100.0100, L500.4050, L501.8100 #### [facility] [address] [place], [address] RDW SD 43.1 fl Normal 35.1-43.9 [facility] Comment on above: Performed By: #### L 100.0100, L500.4050, L501.8100 #### [facility] [address] [place], [address] WBC (Bld) [#/Vol] 4.6 10*3/uL Normal 4.4-11.0 [facility] [place] [facility] Comment on above: Performed By: #### L 100.0100, L500.4050, L501.8100 #### [facility] [address] [place], [address] Carbon dioxide measurementOr dered By: Mendez Kumar on 05-09-2024 CO2 [Moles/Vol] 29.0 mmol/L 21.0-32.0 [facility] Chloride measurementOrdered By: Mendez Kumar on 05-09-2024 Chloride [Moles/Vol] 105 mmol/L 98-107 [facility] Comprehensive Metabolic Prof ilon 05-09-2024 Albumin [Mass/Vol] 3.8 g/dL Normal 3.2-5.0 [facility] [place] [facility] Comment on above: Performed By: #### L 100.0100, L500.4050, L501.8100 #### [facility] [address] [place], [address] Albumin/Globulin [Mass ratio] 1.2 {ratio} Normal 0.9-2.4 [facility] Comment on above: Performed By: #### L 100.0100, L500.4050, L501.8100 #### [facility] [address] [place], [address] ALK P 53 U/L Normal 45-117 [facility] Comment on above: Performed By: #### L 100.0100, L500.4050, L501.8100 #### [facility] [address] [place], [address] ALT [Catalytic activity/Vol] 25 U/L Normal 16-61 [facility] Comment on above: Performed By: #### L 100.0100, L500.4050, L501.8100 #### [facility] [address] [place], [address] AST [Catalytic activity/Vol] 15 U/L Normal 15-37 [facility] Comment on above: Performed By: #### L 100.0100, L500.4050, L501.8100 #### [facility] [address] [place], [address] Bilirubin [Mass/Vol] 0.50 mg/dL Normal 0.20-1.00 [facility] Comment on above: Result Comment: For patients on eltrombopag therapy, use of Dimension Vale TBIL is not recommended. Performed By: #### L 100.0100, L500.4050, L501.8100 #### [facility] [address] [place], [address] BUN/CRE 8.4 RATIO Low 10-20 [facility] Comment on above: Performed By: #### L 100.0100, L500.4050, L501.8100 #### [facility] [address] [place], [address] CA,Total 9.2 mg/dL Normal 8.5-10.1 [facility] Comment on above: Performed By: #### L 100.0100, L500.4050, L501.8100 #### [facility] [address] [place], [address] Chloride [Moles/Vol] 105 mmol/L Normal 98-107 [facility] Comment on above: Performed By: #### L 100.0100, L500.4050, L501.8100 #### [facility] [address] [place], [address] CO2 [Moles/Vol] 29.0 mmol/L Normal 21.0-32.0 [facility] Comment on above: Performed By: #### L 100.0100, L500.4050, L501.8100 #### [facility] [address] [place], [address] Creatinine [Mass/Vol] 0.96 mg/dL Normal 0.70-1.30 [facility] Comment on above: Result Comment: The validity of the calculated GFR GFRAA in patients over 70 years has not been determined. Clinical correlation is essential. Performed By: #### L 100.0100, L500.4050, L501.8100 #### [facility] [address] [place], [address] EST GFR - AA 120 mL/min Normal >60 [facility] Comment on above: Result Comment: Afri can [place] GFR Calc Performed By: #### L 100.0100, L500.4050, L501.8100 #### [facility] [address] [place], [address] GAP 6 Normal 5-15 [facility] Comment on above: Performed By: #### L 100.0100, L500.4050, L501.8100 #### [facility] [address] [place], [address] GFR/1.73 sq M.predicted among non-blacks MDRD (S/P/Bld) [Vol rate/Area] 99 mL/min/{1.73_m2} Normal >60 [facility] Comment on above: Result Comment: Non- GFR Calc Performed By: #### L 100.0100, L500.4050, L501.8100 #### [facility] [address] [place], [address] Globulin (S) [Mass/Vol] 3.1 g/dL Normal 2.2-4.2 [facility] Comment on above: Performed By: #### L 100.0100, L500.4050, L501.8100 #### [facility] [address] [place], [address] Glucose [Mass/Vol] 87 mg/dL Normal 74-106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 High risk 500 or higher Very high risk Performed By: #### L IPID, GFR, FT4, CMP, TSH #### [address] [place], [place] [address] TSHon 09-19-2023 TSH Qn 3.50 m[IU]/L Normal 0.36-3.74 [facility] [place] Comment on above: Performed By: #### L IPID, GFR, FT4, CMP, TSH #### [address] [place], [place] [address] 12 Lead EKGon 09-18-2023 12 Lead EKG [facility] Cardi[facility] Services [address] [place] [address] 12 Lead EKG 09/18/23 1311 MR#: [id number] Acct: [id number] Name: ANNA KOENIG Rep #: [id number] : 1995 28 From: Tre Candelario MD Attending Dr: Status: DEP ER Ordering Dr: Dawson Barnett MD Date: 09/18/23 Location: ED Sex: M C Admitted: Test Reason : PALP Blood Pressure : / mmHG Vent. Rate : 101 BPM Atrial Rate : 101 BPM P-R Int : 134 ms QRS Dur : 084 ms QT Int : 334 ms P-R-T Axes : 056 031 037 degrees QTc Int : 433 ms Sinus tachycardia Otherwise normal ECG Confirmed by Tre Candelario ([id number]), editor in chief TONG MIGUEL ([id number]) on 09/19/2023 8:33:06 AM Referred By: Confirmed By:Tre Candelario 09/19/23 0833 Date Tre Candelario MD CC: TIRE REPAIRER-C Matilde Pérez; Dr. Dawson Barnett MD Signed Normal [facility] Basic Metabolic Profile (BMP )on 09-18-2023 BUN/CRE 9.1 RATIO Low 10-20 [facility] Comment on above: Order Comment: 'TROP ' Serial specimen #1, #2 or #3: 1 Performed By: #### L 100.0100, L501.4020, L500.2500 ####[facility] [address] [place], [address] CA,Total 9.1 mg/dL Normal 8.5-10.1 [facility] Comment on above: Order Comment: 'TROP ' Serial specimen #1, #2 or #3: 1 Performed By: #### L 100.0100, L501.4020, L500.2500 ####[facility] [address] [place], [address] Chloride [Moles/Vol] 106 mmol/L Normal 98-107 [facility] Comment on above: Order Comment: 'TROP ' Serial specimen #1, #2 or #3: 1 Performed By: #### L 100.0100, L501.4020, L500.2500 ####[facility] [address] [place], [address] CO2 [Moles/Vol] 27.0 mmol/L Normal 21.0-32.0 [facility] Comment on above: Order Comment: 'TROP ' Serial specimen #1, #2 or #3: 1 Performed By: #### L 100.0100, L501.4020, L500.2500 ####[facility] [address] [place], [address] Creatinine [Mass/Vol] 0.99 mg/dL Normal 0.70-1.30 [facility] Comment on above: Order Comment: 'TROP ' Serial specimen #1, #2 or #3: 1 Result Comment: The validity of the calculated GFR GFRAA in patients over 70 years has not been determined. Clinical correlation is essential. Performed By: #### L 100.0100, L501.4020, L500.2500 ####[facility] [address] [place], [address] ECRCL 112.90 ml/min Normal [facility] Comment on above: Order Comment: 'TROP ' Serial specimen #1, #2 or #3: 1 Performed By: #### L 100.0100, L501.4020, L500.2500 ####[facility] [address] [place], [address] EST GFR - AA 115 mL/min Normal >60 [facility] Comment on above: Order Comment: 'TROP ' Serial specimen #1, #2 or #3: 1 Result Comment: Afri can [place] GFR Calc Performed By: #### L 100.0100, L501.4020, L500.2500 ####[facility] [address] [place], [address] GAP 5 Normal 5-15 [facility] Comment on above: Order Comment: 'TROP ' Serial specimen #1, #2 or #3: 1 Performed By: #### L 100.0100, L501.4020, L500.2500 ####[facility] [address] [place], [address] GFR/1.73 sq M.predicted among non-blacks MDRD (S/P/Bld) [Vol rate/Area] 95 mL/min/{1.73_m2} Normal >60 [facility] Comment on above: Order Comment: 'TROP ' Serial specimen #1, #2 or #3: 1 Result Comment: Non- GFR Calc Performed By: #### L 100.0100, L501.4020, L500.2500 ####[facility] [address] [place], [address] Glucose [Mass/Vol] 139 mg/dL High 74-106 [facility] [place] [facility] Comment on above: Order Comment: 'TROP ' Serial specimen #1, #2 or #3: 1 Result Comment: Fast ing Glucose result greater than or equal to 126 mg/dL suggests DIABETES MELLITUS per A.D.A. criteria. Performed By: #### L 100.0100, L501.4020, L500.2500 ####[facility] [address] [place], [address] Potassium [Moles/Vol] 4.2 mmol/L Normal 3.5-5.1 [facility] Comment on above: Order Comment: 'TROP ' Serial specimen #1, #2 or #3: 1 Performed By: #### L 100.0100, L501.4020, L500.2500 ####[facility] [address] [place], [address] Sodium [Moles/Vol] 138 mmol/L Normal 136-145 [facility] [place] [facility] Comment on above: Order Comment: 'TROP ' Serial specimen #1, #2 or #3: 1 Performed By: #### L 100.0100, L501.4020, L500.2500 ####[facility] [address] [place], [address] Urea nitrogen [Mass/Vol] 9 mg/dL Normal 7-18 [facility] Comment on above: Order Comment: 'TROP ' Serial specimen #1, #2 or #3: 1 Performed By: #### L 100.0100, L501.4020, L500.2500 ####[facility] [address] [place], [address] CBC W/Diff, Automatedon 07-0 1-2023 Absolute Lymph 1.49 X10 3/uL Normal 0.83-4.51 [facility] Comment on above: Performed By: #### L 100.0100, L501.4020, L500.2500 ####[facility] [address] [place], [address] Absolute Neut 4.4 X10 3/uL Normal 2.0-7.7 [facility] Comment on above: Performed By: #### L 100.0100, L501.4020, L500.2500 ####[facility] [address] [place], [address] Basophils/100 WBC (Bld) 0.9 % Normal 0-1 [facility] Comment on above: Performed By: #### L 100.0100, L501.4020, L500.2500 ####[facility] [address] [place], [address] Eosinophils/100 WBC (Bld) 1.3 % Normal 0-5 [facility] Comment on above: Performed By: #### L 100.0100, L501.4020, L500.2500 ####[facility] [address] [place], [address] Erythrocyte distribution width (RBC) [Ratio] 13.9 % Normal 11.6-14.6 [facility] Comment on above: Performed By: #### L 100.0100, L501.4020, L500.2500 ####[facility] [address] [place], [address] Hematocrit (Bld) [Volume fraction] 38.9 % Low 40-54 [facility] Comment on above: Performed By: #### L 100.0100, L501.4020, L500.2500 ####[facility] [address] [place], [address] Hemoglobin (Bld) [Mass/Vol] 12.8 g/dL Low 13.0-16.5 [facility] Comment on above: Performed By: #### L 100.0100, L501.4020, L500.2500 ####[facility] [address] [place], [address] IG% 0.900 Normal 0.0-0.9 [facility] Comment on above: Result Comment: IG% - Immature Granulocytes (promyelocytes, myelocytes and metamyelocytes) > 1% indicates that a LEFT SHIFT is Present. Performed By: #### L 100.0100, L501.4020, L500.2500 ####[facility] [address] [place], [address] Lymphocytes/100 WBC (Bld) 22.3 % Normal 19-41 [facility] Comment on above: Performed By: #### L 100.0100, L501.4020, L500.2500 ####[facility] [address] [place], [address] MCH (RBC) [Entitic mass] 30.5 pg Normal 27.0-32.0 [facility] Comment on above: Performed By: #### L 100.0100, L501.4020, L500.2500 ####[facility] [address] [place], [address] MCHC (RBC) [Mass/Vol] 32.9 g/dL Normal 32-36 [facility] Comment on above: Performed By: #### L 100.0100, L501.4020, L500.2500 ####[facility] [address] [place], [address] MCV (RBC) [Entitic vol] 92.8 fL Normal 80-94 [facility] Comment on above: Performed By: #### L 100.0100, L501.4020, L500.2500 ####[facility] [address] [place], [address] Monocytes/100 WBC (Bld) 7.9 % Normal 0-10 [facility] Comment on above: Performed By: #### L 100.0100, L501.4020, L500.2500 ####[facility] [address] [place], [address] Neutrophils/100 WBC (Bld) 66.7 % Normal 47-70 [facility] Comment on above: Performed By: #### L 100.0100, L501.4020, L500.2500 ####[facility] [address] [place], [address] Nucleated RBC (Bld) [#/Vol] 0 10*3/uL Normal 0-5 [facility] Comment on above: Performed By: #### L 100.0100, L501.4020, L500.2500 ####[facility] [address] [place], [address] Platelet mean volume (Bld) [Entitic vol] 9.5 fL Normal 6.2-12.0 [facility] Comment on above: Performed By: #### L 100.0100, L501.4020, L500.2500 ####[facility] [address] [place], [address] Platelets (Bld) [#/Vol] 266 10*3/uL Normal 150-450 [facility] Comment on above: Performed By: #### L 100.0100, L501.4020, L500.2500 ####[facility] [address] [place], [address] RBC (Bld) [#/Vol] 4.19 10*6/uL Low 4.6-6.2 [facility] Comment on above: Performed By: #### L 100.0100, L501.4020, L500.2500 ####[facility] [address] [place], [address] RDW SD 47.3 fl High 35.1-43.9 [facility] Comment on above: Performed By: #### L 100.0100, L501.4020, L500.2500 ####[facility] [address] [place], [address] WBC (Bld) [#/Vol] 6.7 10*3/uL Normal 4.4-11.0 [facility] [place] [facility] Comment on above: Performed By: #### L 100.0100, L501.4020, L500.2500 ####[facility] [address] [place], [address] Chest 1 View (Portable)on Chest 1 View (Portable) [facility] Imaging Services [address] [place] [address] Chest 1 View (Portable) MR#: [id number] Acct: [id number] Name: ANNA KOENIG Rep #: [id number] : 1995 M 28 From: Ortiz Kerns MD PCP: Matilde Pérez NP-C Status: REG ER Study: Chest 1 View (Portable) Date of Exam: 09/18/23 Exam# [id number] Ordering Dr: Dawson Barnett MD [id number] STUDY: X-RAY CHEST REASON FOR EXAM: Male, 28 years old. Chest pain. TECHNIQUE: Single frontal view of the chest. COMPARISON: None. FINDINGS: The lungs are clear and expanded. There is no demonstrated pleural abnormality. Normal size heart. Normal mediastinum and alexi. Normal visualized pulmonary arteries. Normal visualized aortic arch and descending thoracic aorta. No abnormality of the visualized soft tissue structures of the upper abdomen. RAD/Chest 1 View (Portable) IMPRESSION: Normal x-ray examination of the chest. Electronically Signed: Ortiz Kerns MD at 13:37 EDT , CC: TIRE REPAIRER-C Matilde Pérez; Dr. Dawson Barnett MD Mortgage Coordinator: Signed Normal [facility] Emergency Department Summary on 09-18-2023 Emergency Department Summary [facility] Medical Records Department [address] [place] [address] Emergency Department Summary 09/18/23 MR#: [id number] Acct: [id number] Name: ANNA KOENIG Rep #: [id number] : 1995 28 From: Dawson Barnett MD PCP: Matilde Pérez NP-C Status:DEP ER Location: ED HPI History of Present Illness Chief Complaint: Palpitations Informant: patient Onset/Context/Timing Onset: Today, Hours and - (11:30 AM today at workshop.) Activity at onset: sudden Timing: Continuous Current Severity: Mild Maximum Severity: Mild Relieved By: Nothing Associated Symptoms: Negative for Nausea, Vomiting, Diaphoresis, Dyspnea, Cough, Fever, Lightheadedness, Acid Reflux or Palpitations Narrative Narrative: 28-year-old male history of PTSD and OCD. Was at workshop today resulting in palpitations. Denies any chest pain. No shortness of breath. He did not lose consciousness. Been well recently did run out of 1 episode of diarrhea in the last couple days. No melena. No history of cardiac disease. No chest pain. No hemoptysis. No leg pain or swelling. Prior Similar Symptoms: Yes and No Recent Illness/Hospitalizati on: No CVD Risk Factors: Negative for Hypertension or Diabetes PE Risk Factors: Negative for Recent Travel/Surgery, Recent Immobilization, Prior DVT or PE, Cancer or OCP + Smoking + >/=35 TAD Risk Factors: Negative for Marfan's Syndrome, Hypertension or Family History [facility] Medical History (Updated 09/18/23 @ 14:[address] Dawson Barnett MD) Idiopathic moderate intellectual disability PTSD (post-traumatic stress disorder) Allergy/AdvReac Type Severity Reaction Status Date / Time Seasonal Allergies: Uncoded AdvReac RUNNY NOSE Verified 09/18/23 12:14 Social History Smoking Status: Never smoker ROS ROS ED ROS Narrative No recent illness other than mild diarrhea yesterday. Review of Systems ROS Unobtainable: Denies due to encephalopathy Constitutional Constitutional ED: Denies chills or fever(s) Eyes Eyes: Reports none ENT ENT ED: Denies ear pain Cardiovascular Cardiovascular: Reports as per HPI and palpitations; Denies chest pain Respiratory/Chest Respiratory/Chest: Denies cough, dyspnea or dyspnea on exertion Gastrointestinal Gastrointestinal: Denies abdominal pain Genitourinary Genitourinary ED: Denies dysuria or hematuria Musculoskeletal Musculoskeletal: Denies arthralgias, back pain or myalgias Integumentary Denies abscess or Abrasions Neurologic Neurologic: Denies headache(s) Psychiatric Psychiatric: Denies anxiety Endocrine Endocrinology: Denies cold intolerance Hematologic/Lymphatic Hematologic/Lymphatic : Denies easy bleeding, easy bruising or lymphadenopathy Allergic/Immunologic Allergic/Immunologic ED: Denies mouth swelling, tongue swelling or urticaria EXAM Physical Exam Narrative Exam Narrative: Well-appearing 28-year-old male. Vital signs stable afebrile. Pulse ox 100% room air no signs of hypoxia. Pulse 100. H EENT exam unremarkable. Neck nontender no JVD. No lymphadenopathy. No thyromegaly. Lungs clear to auscultation bilaterally. Heart regular rate and rhythm rate about 95 no murmur. Chest wall and ribs nontender. Abdomen soft nontender. Moving all 4 extremities. Calves are nontender without edema or cords. 5-5 senior analyst developer strength. Dorsi plantarflexion intact. Equal symmetrical radial pulses. Neurologically is awake and alert with no focal motor deficits. Const Vital Signs: 09/18/23 12:11 09/18/23 13:15 Temperature 97.6 F L Temperature Source Temporal Pulse Rate 100 Respiratory Rate 16 Blood Pressure 125/95 H Blood Pressure Mean 105 Pulse Ox 100 Oxygen Delivery Method Room Air Room Air Positive well nourished and well developed; Negative for obese, cachectic, contractures or unkempt General Appearance ED: well developed and NAD; Negative for unkempt, cachectic, contractures or pallor Nutritional Appearance: Negative for cachectic or obese HEENT Reports moist mucous membranes; Denies dry mucous membranes normocephalic and atraumatic; Negative for trauma or tenderness Mouth ED: No dry mucous membranes Mouth: No dry mucous membranes Eyes PERRL and EOMs intact bilaterally General Eye ED: Negative for pale conjunctiva, scleral icterus or other Neck no lymphadenopathy, supple and no JVD General: Negative for tenderness Chest Wall inspection of chest normal and palpation of chest normal Chest: Negative for tenderness Resp normal respiratory effort and clear to auscultation bilaterally Effort and Inspection: Negative for respiratory distress Auscultation: Negative for rales, rhonchi, wheezes or diminished lung sounds Cardio regular rate, regular rhythm, S1 normal heart sound, S2 normal heart sound and no murmu (more content not included)... Normal [facility] [id number] 09-18-2023 TROPONIN-I HS < 3 Low 3.0-78.0 [facility] Comment on above: Order Comment: 'TROP ' Serial specimen #1, #2 or #3: 1 Result Comment: Cal short Note: New Test Units and Gender Specific Reference Ranges. For more information see Policy Stat Procedure [place] High Sensitivity Troponin (TNIH) and attachments. Performed By: #### L 100.0100, L501.4020, L500.2500 ####[facility] [id number] [place], [place], [address] .GFRon 06-12-2023 GFR Non- 88 ml/min/1.73sqm Normal [facility] ([place]) Comment on above: Result Comment: GFR Population mean for , Non- Americans Ages 20-29 = 116 mL/min/1.73 sq.m. Ages 30-39 = 107 mL/min/1.73 sq.m. Ages 40-49 = 99 mL/min/1.73 sq.m. Ages 50-59 = 93 mL/min/1.73 sq.m. Ages 60-69 = 85 mL/min/1.73 sq.m. Ages 70+ = 75 mL/min/1.73 sq.m. Chronic Kidney Disease: Less than 60 mL/min/1.73 square meters End Stage Renal Disease: Less than 15 mL/min/1.73 square meters Performed By: #### A 1C, LIPID, CMP, GFR #### [address] [address] GFR 107 ml/min/1.73sqm Normal [facility] ([place] Comment on above: Result Comment: GFR Population mean for , Non- Americans Ages 20-29 = 116 mL/min/1.73 sq.m. Ages 30-39 = 107 mL/min/1.73 sq.m. Ages 40-49 = 99 mL/min/1.73 sq.m. Ages 50-59 = 93 mL/min/1.73 sq.m. Ages 60-69 = 85 mL/min/1.73 sq.m. Ages 70+ = 75 mL/min/1.73 sq.m. Chronic Kidney Disease: Less than 60 mL/min/1.73 square meters End Stage Renal Disease: Less than 15 mL/min/1.73 square meters Performed By: #### A 1C, LIPID, CMP, GFR #### [address] [address] CMPon 06-12-2023 Albumin Level 3.7 G/dL Normal 3.5-5.0 [facility] ([place] Comment on above: Performed By: #### A 1C, LIPID, CMP, GFR #### [address] [address] Albumin/Globulin [Mass ratio] 1.2 {ratio} Normal 1.1-2.5 [facility] ([place] Comment on above: Performed By: #### A 1C, LIPID, CMP, GFR #### [address] [address] ALP [Catalytic activity/Vol] 57 U/L Normal 40-135 [facility] ([place] Comment on above: Performed By: #### A 1C, LIPID, CMP, GFR #### [address] [address] ALT [Catalytic activity/Vol] 43 U/L Normal 16-63 [facility] ([place] Comment on above: Performed By: #### A 1C, LIPID, CMP, GFR #### [address] [address] AST [Catalytic activity/Vol] 26 U/L Normal 10-40 [facility] ([place] Comment on above: Performed By: #### A 1C, LIPID, CMP, GFR #### [address] [address] Bili Total 0.4 mg/dL Normal 0.2-1.0 [facility] ([place] Comment on above: Result Comment: Use of this assay is not recommended for patients undergoing treatment with eltrombopag due to the potential for falsely elevated results. Performed By: #### A 1C, LIPID, CMP, GFR #### [address] [address] BUN/Creatinine Ratio 14 ratio Normal 7-27 [facility] ([place] Comment on above: Performed By: #### A 1C, LIPID, CMP, GFR #### [address] [address] Calcium [Mass/Vol] 9.1 mg/dL Normal 8.4-10.2 [facility] ([place]) Comment on above: Performed By: #### A 1C, LIPID, CMP, GFR #### [address] [address] Chloride [Moles/Vol] 102 mmol/L Normal 98-107 [facility] ([place] Comment on above: Performed By: #### A 1C, LIPID, CMP, GFR #### [address] [address] CO2 [Moles/Vol] 31 mmol/L High 22-29 [facility] ([place] Comment on above: Performed By: #### A 1C, LIPID, CMP, GFR #### [address] [address] Creatinine [Mass/Vol] 1.01 mg/dL Normal 0.70-1.30 [facility] ([place]) Comment on above: Performed By: #### A 1C, LIPID, CMP, GFR #### [address] [address] Electrolyte Balance 8.0 mEq/L Normal 4.0-15.0 [facility] ([place]) Comment on above: Performed By: #### A 1C, LIPID, CMP, GFR #### [address] [address] Globulin 3.2 G/dL Normal [facility] ([place] Comment on above: Performed By: #### A 1C, LIPID, CMP, GFR #### [address] [address] Glucose [Mass/Vol] 83 mg/dL Normal 70-105 [facility] ([place]) Comment on above: Performed By: #### A 1C, LIPID, CMP, GFR #### [address] [address] Potassium [Moles/Vol] 4.3 mmol/L Normal 3.5-5.1 [facility] ([place]) Comment on above: Performed By: #### A 1C, LIPID, CMP, GFR #### [address] [address] Sodium [Moles/Vol] 141 mmol/L Normal 136-145 [facility] ([place]) Comment on above: Performed By: #### A 1C, LIPID, CMP, GFR #### [address] [address] Total Protein 6.9 G/dL Normal 6.4-8.2 [facility] ([place] Comment on above: Performed By: #### A 1C, LIPID, CMP, GFR #### [address] [address] Urea nitrogen [Mass/Vol] 14 mg/dL Normal 7-18 [facility] ([place] Comment on above: Performed By: #### A 1C, LIPID, CMP, GFR #### [address] [address] FT4on 06-12-2023 Free T4 [Mass/Vol] 0.69 ng/dL Low 0.76-1.46 [facility] ([place] Comment on above: Performed By: #### A 1C, LIPID, CMP, GFR #### [address] [address] LABORATORYOrdered By: SYSTEM SYSTEM on 06-12-2023 Albumin BCP dye [Mass/Vol] 3.7 G/dL Normal 3.5 - 5.0 G/dL AO ADM SS Albumin/Globulin [Mass ratio] 1.2 {ratio} Normal 1.1 - 2.5 ratio AO ADM SS ALP [Catalytic activity/Vol] 57 U/L Normal 40 - 135 U/L AO ADM SS ALT With P-5'-P [Catalytic activity/Vol] 43 U/L Normal 16 - 63 U/L AO ADM SS AST With P-5'-P [Catalytic activity/Vol] 26 U/L Normal 10 - 40 U/L AO ADM SS Bilirubin [Mass/Vol] 0.4 mg/dL Normal 0.2 - 1 .0 mg/dL AO ADM SS Comment on above: Interpretive Data: U se of this assay is not recommended for patients undergoing treatment with eltrombopag due to the potential for falsely elevated results. Calcium [Mass/Vol] 9.1 mg/dL Normal 8.4 - 10. 2 mg/dL AO ADM SS Chloride [Moles/Vol] 102 mmol/L Normal 98 - 10 7 mmol/L AO ADM SS CO2 [Moles/Vol] 31 mmol/L High 22 - 29 mmol/L AO ADM SS Creatinine [Mass/Vol] 1.01 mg/dL Normal 0.70 - 1.30 mg/dL AO ADM SS Electrolyte Balance 8.0 mEq/L Normal 4.0 - 15 .0 mEq/L AO ADM SS Free T4 [Mass/Vol] 0.69 ng/dL Low 0.76 - 1. 46 ng/dL AO ADM SS GFR/1.73 sq M.predicted among blacks MDRD (S/P/Bld) [Vol rate/Area] 107 ml/min/1.73sqm Invalid Interpretation Code AO Chemistry S Comment on above: Interpretive Data: GFR Population mean for , Non- Americans Ages 20-29 = 116 mL/min/1.73 sq.m. Ages 30-39 = 107 mL/min/1.73 sq.m. Ages 40-49 = 99 mL/min/1.73 sq.m. Ages 50-59 = 93 mL/min/1.73 sq.m. Ages 60-69 = 85 mL/min/1.73 sq.m. Ages 70+ = 75 mL/min/1.73 sq.m. Chronic Kidney Disease: Less than 60 mL/min/1.73 square meters End Stage Renal Disease: Less than 15 mL/min/1.73 square meters GFR/1.73 sq M.predicted among non-blacks MDRD (S/P/Bld) [Vol rate/Area] 88 ml/min/1.73sqm Invalid Interpretation Code AO Chemistry S Comment on above: Interpretive Data: GFR Population mean for , Non- Americans Ages 20-29 = 116 mL/min/1.73 sq.m. Ages 30-39 = 107 mL/min/1.73 sq.m. Ages 40-49 = 99 mL/min/1.73 sq.m. Ages 50-59 = 93 mL/min/1.73 sq.m. Ages 60-69 = 85 mL/min/1.73 sq.m. Ages 70+ = 75 mL/min/1.73 sq.m. Chronic Kidney Disease: Less than 60 mL/min/1.73 square meters End Stage Renal Disease: Less than 15 mL/min/1.73 square meters Globulin 3.2 G/dL Invalid Interpretation Code AO ADM SS Glucose [Mass/Vol] 83 mg/dL Normal 70 - 105 mg/dL AO ADM SS Potassium [Moles/Vol] 4.3 mmol/L Normal 3.5 - 5.1 mmol/L AO ADM SS Protein [Mass/Vol] 6.9 G/dL Normal 6.4 - 8.2 G/dL AO ADM SS Sodium [Moles/Vol] 141 mmol/L Normal 136 - 145 mmol/L AO ADM SS TSH Qn 6.92 m[IU]/L High 0.36 - 3.74 mcIU/mL AO ADM SS Urea nitrogen [Mass/Vol] 14 mg/dL Normal 7 - 18 mg/dL AO ADM SS Urea nitrogen/Creatinine [Mass ratio] 14 ratio Normal 7 - 27 ratio AO ADM SS LABORATORYOrdered By: Ashley Virgen on 06-12-2023 Cholesterol [Mass/Vol] 138 mg/dL Normal 0 - 2 00 mg/dL AO ADM SS Comment on above: Interpretive Data: C holesterol Reference Interval: Less than 200 Desirable 200-239 Borderline high risk 240 and above High risk Cholesterol in HDL [Mass/Vol] 10 mg/dL Low 40 - 60 mg/dL AO ADM SS Cholesterol in LDL [Mass/Vol] 90 mg/dL Normal 0 - 130 mg/dL AO Chemistry S Triglyceride [Mass/Vol] 189 mg/dL High 0 - 150 mg/dL AO ADM SS Comment on above: Interpretive Data: T riglyceride Reference Interval: Less than 150 Normal 150-199 Borderline high risk 200-499 High risk 500 or higher Very high risk LIPIDon 06-12-2023 Cholesterol in LDL [Mass/Vol] 90 mg/dL Normal 0-130 [facility] ([place] Comment on above: Performed By: #### A 1C, LIPID, CMP, GFR #### [address] [address] Cholesterol [Mass/Vol] 138 mg/dL Normal 0-200 [facility] ([place]) Comment on above: Result Comment: Chol esterol Reference Interval: Less than 200 Desirable 200-239 Borderline high risk 240 and above High risk Performed By: #### A 1C, LIPID, CMP, GFR #### [address] [address] Cholesterol in HDL [Mass/Vol] 10 mg/dL Low 40-60 [facility] ([place] Comment on above: Performed By: #### A 1C, LIPID, CMP, GFR #### [address] [address] Triglyceride [Mass/Vol] 189 mg/dL High 0-150 [facility] ([place]) Comment on above: Result Comment: Trig lyceride Reference Interval: Less than 150 Normal 150-199 Borderline high risk 200-499 High risk 500 or higher Very high risk Performed By: #### A 1C, LIPID, CMP, GFR #### [address] [address] TSHon 06-12-2023 TSH Qn 6.92 m[IU]/L High 0.36-3.74 [facility] ([place]) Comment on above: Performed By: #### G FR, TSH, CMP, FT4, LIPID #### [address] [address] LABORATORYOrdered By: Dia Oneil on 05-02-2023 Glucose [Mass/Vol] 94 mg/dL Normal 70 - 110 mg/dL [facility] Work Phone: .GFRon 12-09-2022 GFR 111 ml/min/1.73sqm Normal [facility] ([place] Comment on above: Result Comment: GFR Population mean for , Non- Americans Ages 20-29 = 116 mL/min/1.73 sq.m. Ages 30-39 = 107 mL/min/1.73 sq.m. Ages 40-49 = 99 mL/min/1.73 sq.m. Ages 50-59 = 93 mL/min/1.73 sq.m. Ages 60-69 = 85 mL/min/1.73 sq.m. Ages 70+ = 75 mL/min/1.73 sq.m. Chronic Kidney Disease: Less than 60 mL/min/1.73 square meters End Stage Renal Disease: Less than 15 mL/min/1.73 square meters Performed By: #### A 1C, LIPID, CMP, GFR #### [address] [address] GFR Non- 92 ml/min/1.73sqm Normal [facility] ([place] Comment on above: Result Comment: GFR Population mean for , Non- Americans Ages 20-29 = 116 mL/min/1.73 sq.m. Ages 30-39 = 107 mL/min/1.73 sq.m. Ages 40-49 = 99 mL/min/1.73 sq.m. Ages 50-59 = 93 mL/min/1.73 sq.m. Ages 60-69 = 85 mL/min/1.73 sq.m. Ages 70+ = 75 mL/min/1.73 sq.m. Chronic Kidney Disease: Less than 60 mL/min/1.73 square meters End Stage Renal Disease: Less than 15 mL/min/1.73 square meters Performed By: #### A 1C, LIPID, CMP, GFR #### [address] [address] A1Con 12-09-2022 HbA1c (Bld) [Mass fraction] 5.9 % Normal 4.3-6.4 [facility] ([place] Comment on above: Performed By: #### A 1C, LIPID, CMP, GFR #### [address] [address] CMPon 12-09-2022 Albumin Level 3.9 G/dL Normal 3.5-5.0 [facility] ([place] Comment on above: Performed By: #### A 1C, LIPID, CMP, GFR #### [address] [address] Albumin/Globulin [Mass ratio] 1.2 {ratio} Normal 1.1-2.5 [facility] ([place] Comment on above: Performed By: #### A 1C, LIPID, CMP, GFR #### [address] [address] ALP [Catalytic activity/Vol] 69 U/L Normal 40-135 [facility] ([place] Comment on above: Performed By: #### A 1C, LIPID, CMP, GFR #### [address] [address] ALT [Catalytic activity/Vol] 43 U/L Normal 16-63 [facility] ([place] Comment on above: Performed By: #### A 1C, LIPID, CMP, GFR #### [address] [address] AST [Catalytic activity/Vol] 17 U/L Normal 10-40 [facility] ([place] Comment on above: Performed By: #### A 1C, LIPID, CMP, GFR #### [address] [address] Bili Total 0.3 mg/dL Normal 0.2-1.0 [facility] ([place] Comment on above: Result Comment: Use of this assay is not recommended for patients undergoing treatment with eltrombopag due to the potential for falsely elevated results. Performed By: #### A 1C, LIPID, CMP, GFR #### [address] [address] BUN/Creatinine Ratio 12 ratio Normal 7-27 [facility] ([place] Comment on above: Performed By: #### A 1C, LIPID, CMP, GFR #### [address] [address] Calcium [Mass/Vol] 9.2 mg/dL Normal 8.4-10.2 [facility] ([place]) Comment on above: Performed By: #### A 1C, LIPID, CMP, GFR #### [address] [address] Chloride [Moles/Vol] 101 mmol/L Normal 98-107 [facility] ([place] Comment on above: Performed By: #### A 1C, LIPID, CMP, GFR #### [address] [address] CO2 [Moles/Vol] 33 mmol/L High 22-29 [facility] ([place] Comment on above: Performed By: #### A 1C, LIPID, CMP, GFR #### [address] [address] Creatinine [Mass/Vol] 0.98 mg/dL Normal 0.70-1.30 [facility] ([place]) Comment on above: Performed By: #### A 1C, LIPID, CMP, GFR #### [address] [address] Electrolyte Balance 8.0 mEq/L Normal 4.0-15.0 [facility] ([place]) Comment on above: Performed By: #### A 1C, LIPID, CMP, GFR #### [address] [address] Globulin 3.3 G/dL Normal [facility] ([place] Comment on above: Performed By: #### A 1C, LIPID, CMP, GFR #### [address] [address] Glucose [Mass/Vol] 93 mg/dL Normal 70-105 [facility] ([place]) Comment on above: Performed By: #### A 1C, LIPID, CMP, GFR #### [address] [address] Potassium [Moles/Vol] 4.6 mmol/L Normal 3.5-5.1 [facility] ([place]) Comment on above: Performed By: #### A 1C, LIPID, CMP, GFR #### [address] [address] Sodium [Moles/Vol] 142 mmol/L Normal 136-145 [facility] ([place]) Comment on above: Performed By: #### A 1C, LIPID, CMP, GFR #### [address] [address] Total Protein 7.2 G/dL Normal 6.4-8.2 [facility] ([place] Comment on above: Performed By: #### A 1C, LIPID, CMP, GFR #### [address] [address] Urea nitrogen [Mass/Vol] 12 mg/dL Normal 7-18 [facility] ([place] Comment on above: Performed By: #### A 1C, LIPID, CMP, GFR #### [address] [address] LIPIDon 12-09-2022 Cholesterol [Mass/Vol] 207 mg/dL High 0-200 [facility] ([place]) Comment on above: Result Comment: Chol esterol Reference Interval: Less than 200 Desirable 200-239 Borderline high risk 240 and above High risk Performed By: #### A 1C, LIPID, CMP, GFR #### [place] [address] Cholesterol in HDL [Mass/Vol] 28 mg/dL Low 40-60 [facility] ([place] Comment on above: Performed By: #### A 1C, LIPID, CMP, GFR #### [place] [address] Cholesterol in LDL [Mass/Vol] 119 mg/dL Normal 0-130 [facility] ([place] Comment on above: Performed By: #### A 1C, LIPID, CMP, GFR #### [address] [address] Triglyceride [Mass/Vol] 301 mg/dL High 0-150 [facility] ([place]) Comment on above: Result Comment: Trig lyceride Reference Interval: Less than 150 Normal 150-199 Borderline high risk 200-499 High risk 500 or higher Very high risk Performed By: #### A 1C, LIPID, CMP, GFR #### [place] [address] LABORATORYOrdered By: Ashley Virgen on 12-08-2021 Albumin BCP dye [Mass/Vol] 3.9 G/dL Invalid Interpretation Code 3.5 - 5.0 G/dL AO ADM SS Albumin/Globulin [Mass ratio] 1.1 {ratio} Invalid Interpretation Code 1.1 - 2.5 ratio AO ADM SS ALP [Catalytic activity/Vol] 68 U/L Invalid Interpretation Code 40 - 135 U/L AO ADM SS ALT With P-5'-P [Catalytic activity/Vol] 80 U/L Invalid Interpretation Code 16 - 63 U/L AO ADM SS AST With P-5'-P [Catalytic activity/Vol] 36 U/L Invalid Interpretation Code 10 - 40 U/L AO ADM SS Bilirubin [Mass/Vol] 0.4 mg/dL Invalid Interpretation Code 0.2 - 1.0 mg/dL AO ADM SS Calcium [Mass/Vol] 9.2 mg/dL Invalid Interpretation Code 8.4 - 10.2 mg/dL AO ADM SS Chloride [Moles/Vol] 101 mmol/L Invalid Interpretation Code 98 - 107 mmol/L AO ADM SS CO2 [Moles/Vol] 32 mmol/L Invalid Interpretation Code 22 - 29 mmol/L AO ADM SS Creatinine [Mass/Vol] 1.05 mg/dL Invalid Interpretation Code 0.70 - 1.30 mg/dL AO ADM SS Electrolyte Balance 7.0 mEq/L Invalid Interpretation Code 4.0 - 15.0 mEq/L AO ADM SS Globulin 3.5 G/dL Invalid Interpretation Code AO ADM SS Glucose [Mass/Vol] 93 mg/dL Invalid Interpretation Code 70 - 105 mg/dL AO ADM SS LDose Valproic Acid: Unknown (12/08/21 7:56 AM) Invalid Interpretation Code AO Chemistry S Potassium [Moles/Vol] 4.5 mmol/L Invalid Interpretation Code 3.5 - 5.1 mmol/L AO ADM SS Protein [Mass/Vol] 7.4 G/dL Invalid Interpretation Code 6.4 - 8.2 G/dL AO ADM SS Sodium [Moles/Vol] 140 mmol/L Invalid Interpretation Code 136 - 145 mmol/L AO ADM SS TSH Qn 4.24 m[IU]/L Invalid Interpretation Code 0.36 - 3.74 mcIU/mL AO ADM SS Urea nitrogen [Mass/Vol] 11 mg/dL Invalid Interpretation Code 7 - 18 mg/dL AO ADM SS Urea nitrogen/Creatinine [Mass ratio] 10 ratio Invalid Interpretation Code 7 - 27 ratio AO ADM SS Valproate [Mass/Vol] 76 ug/mL Invalid Interpretation Code 50 - 100 mcg/mL AO ADM SS Vit. D 25-Hydroxy 25.9 ng/mL Invalid Interpretation Code AO ADM SS LABORATORYOrdered By: Joi Harmon on 12-08-2021 Basophil, Absolute 0.0 103/mcL Invalid Interpretation Code 0.0 - 0.2 10^3/mcL AO Workflow SS Basophils/100 WBC (Bld) 0.7 % Invalid Interpretation Code 0.0 - 2.5 % AO Workflow SS Eosinophil, Absolute 0.1 103/mcL Invalid Interpretation Code 0.0 - 0.4 10^3/mcL AO Workflow SS Eosinophils/100 WBC (Bld) 2.6 % Invalid Interpretation Code 0.0 - 7.0 % AO Workflow SS Erythrocyte distribution width (RBC) [Ratio] 12.8 % Invalid Interpretation Code 11.5 - 14.5 % AO Workflow SS Hematocrit (Bld) [Volume fraction] 41.6 % Invalid Interpretation Code 42.0 - 52.0 % AO Workflow SS Hemoglobin (Bld) [Mass/Vol] 14.5 G/dL Invalid Interpretation Code 14.0 - 18.0 G/dL AO Workflow SS Lymphocyte, Absolute 1.8 103/mcL Invalid Interpretation Code 0.8 - 3.9 10^3/mcL AO Workflow SS Lymphocytes/100 WBC (Bld) 32.8 % Invalid Interpretation Code 10.0 - 50.0 % AO Workflow SS MCH (RBC) [Entitic mass] 31.0 pg Invalid Interpretation Code 27.0 - 31.2 pg AO Workflow SS MCHC 34.9 G/dL Invalid Interpretation Code 31.8 - 35.4 G/dL AO Workflow SS MCV (RBC) [Entitic vol] 88.9 fL Invalid Interpretation Code 80.0 - 94.0 fL AO Workflow SS Monocyte, Absolute 0.5 103/mcL Invalid Interpretation Code 0.2 - 1.0 10^3/mcL AO Workflow SS Monocytes/100 WBC (Bld) 9.5 % Invalid Interpretation Code 1.7 - 13.0 % AO Workflow SS Neutrophil, Absolute 2.9 103/mcL Invalid Interpretation Code 2.9 - 6.2 10^3/mcL AO Workflow SS Neutrophils/100 WBC (Bld) 54.4 % Invalid Interpretation Code 37.0 - 80.0 % AO Workflow SS Platelet mean volume (Bld) [Entitic vol] 7.8 fL Invalid Interpretation Code 7.4 - 10.4 fL AO Workflow SS Platelets (Bld) [#/Vol] 236 103/mcL Invalid Interpretation Code 130 - 400 10^3/mcL AO Workflow SS RBC (Bld) [#/Vol] 4.68 106/mcL Invalid Interpretation Code 4.04 - 6.13 10^6/mcL AO Workflow SS WBC (Bld) [#/Vol] 5.4 103/mcL Invalid Interpretation Code 4.6 - 10.8 10^3/mcL AO Workflow SS LABORATORYOrdered By: SYSTEM SYSTEM on 12-08-2021 Cobalamin (Vitamin B12) [Mass/Vol] 529 pg/mL Invalid Interpretation Code 211 - 911 pg/mL AH ADM SS Folate [Mass/Vol] 28.02 ng/mL Invalid Interpretation Code 5.38 - 24.00 ng/mL AH ADM SS GFR 103 ml/min/1.73sqm Invalid Interpretation Code AO Chemistry S GFR Non- 85 ml/min/1.73sqm Invalid Interpretation Code AO Chemistry S LABORATORYOrdered By: Joi Harmon on 09-02-2021 Albumin BCP dye [Mass/Vol] 4.3 G/dL Invalid Interpretation Code 3.5 - 5.0 G/dL AO ADM SS Albumin/Globulin [Mass ratio] 1.2 {ratio} Invalid Interpretation Code 1.1 - 2.5 ratio AO ADM SS ALP [Catalytic activity/Vol] 72 U/L Invalid Interpretation Code 40 - 135 U/L AO ADM SS ALT With P-5'-P [Catalytic activity/Vol] 38 U/L Invalid Interpretation Code 16 - 63 U/L AO ADM SS AST With P-5'-P [Catalytic activity/Vol] 22 U/L Invalid Interpretation Code 10 - 40 U/L AO ADM SS Bilirubin [Mass/Vol] 0.2 mg/dL Invalid Interpretation Code 0.2 - 1.0 mg/dL AO ADM SS Calcium [Mass/Vol] 10.0 mg/dL Invalid Interpretation Code 8.4 - 10.2 mg/dL AO ADM SS Chloride [Moles/Vol] 100 mmol/L Invalid Interpretation Code 98 - 107 mmol/L AO ADM SS Cholesterol [Mass/Vol] 256 mg/dL Invalid Interpretation Code 0 - 200 mg/dL AO ADM SS Cholesterol in HDL [Mass/Vol] 28 mg/dL Invalid Interpretation Code 40 - 60 mg/dL AO ADM SS Cholesterol in LDL [Mass/Vol] 151 mg/dL Invalid Interpretation Code 0 - 130 mg/dL AO ADM SS CO2 [Moles/Vol] 30 mmol/L Invalid Interpretation Code 22 - 29 mmol/L AO ADM SS Creatinine [Mass/Vol] 0.97 mg/dL Invalid Interpretation Code 0.70 - 1.30 mg/dL AO ADM SS Electrolyte Balance 8.0 mEq/L Invalid Interpretation Code 4.0 - 15.0 mEq/L AO ADM SS Globulin 3.5 G/dL Invalid Interpretation Code AO ADM SS Glucose [Mass/Vol] 95 mg/dL Invalid Interpretation Code 70 - 105 mg/dL AO ADM SS LDose Valproic Acid: Unknown (09/02/21 7:51 AM) Invalid Interpretation Code AO Chemistry S Potassium [Moles/Vol] 4.6 mmol/L Invalid Interpretation Code 3.5 - 5.1 mmol/L AO ADM SS Protein [Mass/Vol] 7.8 G/dL Invalid Interpretation Code 6.4 - 8.2 G/dL AO ADM SS Sodium [Moles/Vol] 138 mmol/L Invalid Interpretation Code 136 - 145 mmol/L AO ADM SS Triglyceride [Mass/Vol] 384 mg/dL Invalid Interpretation Code 0 - 150 mg/dL AO ADM SS TSH Qn 5.05 m[IU]/L Invalid Interpretation Code 0.36 - 3.74 mcIU/mL AO ADM SS Urea nitrogen [Mass/Vol] 10 mg/dL Invalid Interpretation Code 7 - 18 mg/dL AO ADM SS Urea nitrogen/Creatinine [Mass ratio] 10 ratio Invalid Interpretation Code 7 - 27 ratio AO ADM SS Valproate [Mass/Vol] 60 ug/mL Invalid Interpretation Code 50 - 100 mcg/mL AO ADM SS Vit. D 25-Hydroxy 26.2 ng/mL Invalid Interpretation Code AO ADM SS LABORATORYOrdered By: Aspen Livingston on 09-02-2021 Basophil, Absolute 0.0 103/mcL Invalid Interpretation Code 0.0 - 0.2 10^3/mcL AO Workflow SS Basophils/100 WBC (Bld) 0.5 % Invalid Interpretation Code 0.0 - 2.5 % AO Workflow SS Eosinophil, Absolute 0.2 103/mcL Invalid Interpretation Code 0.0 - 0.4 10^3/mcL AO Workflow SS Eosinophils/100 WBC (Bld) 2.9 % Invalid Interpretation Code 0.0 - 7.0 % AO Workflow SS Erythrocyte distribution width (RBC) [Ratio] 12.3 % Invalid Interpretation Code 11.5 - 14.5 % AO Workflow SS Hematocrit (Bld) [Volume fraction] 45.1 % Invalid Interpretation Code 42.0 - 52.0 % AO Workflow SS Hgb 15.5 G/dL Invalid Interpretation Code 14.0 - 18.0 G/dL AO Workflow SS Lymphocyte, Absolute 2.1 103/mcL Invalid Interpretation Code 0.8 - 3.9 10^3/mcL AO Workflow SS Lymphocytes/100 WBC (Bld) 38.9 % Invalid Interpretation Code 10.0 - 50.0 % AO Workflow SS MCH (RBC) [Entitic mass] 30.9 pg Invalid Interpretation Code 27.0 - 31.2 pg AO Workflow SS MCHC 34.4 G/dL Invalid Interpretation Code 31.8 - 35.4 G/dL AO Workflow SS MCV (RBC) [Entitic vol] 89.6 fL Invalid Interpretation Code 80.0 - 94.0 fL AO Workflow SS Monocyte, Absolute 0.4 103/mcL Invalid Interpretation Code 0.2 - 1.0 10^3/mcL AO Workflow SS Monocytes/100 WBC (Bld) 7.1 % Invalid Interpretation Code 1.7 - 13.0 % AO Workflow SS Neutrophil, Absolute 2.7 103/mcL Invalid Interpretation Code 2.9 - 6.2 10^3/mcL AO Workflow SS Neutrophils/100 WBC (Bld) 50.6 % Invalid Interpretation Code 37.0 - 80.0 % AO Workflow SS Platelet 274 103/mcL Invalid Interpretation Code 130 - 400 10^3/mcL AO Workflow SS Platelet mean volume (Bld) [Entitic vol] 8.2 fL Invalid Interpretation Code 7.4 - 10.4 fL AO Workflow SS RBC 5.03 106/mcL Invalid Interpretation Code 4.04 - 6.13 10^6/mcL AO Workflow SS WBC 5.4 103/mcL Invalid Interpretation Code 4.6 - 10.8 10^3/mcL AO Workflow SS LABORATORYOrdered By: SYSTEM SYSTEM on 09-02-2021 Cobalamin (Vitamin B12) [Mass/Vol] 400 pg/mL Invalid Interpretation Code 211 - 911 pg/mL ADM SS Folate [Mass/Vol] 16.74 ng/mL Invalid Interpretation Code 5.38 - 24.00 ng/mL ADM SS GFR 113 ml/min/1.73sqm Invalid Interpretation Code AO Chemistry S GFR Non- 94 ml/min/1.73sqm Invalid Interpretation Code AO Chemistry S Monocyte distribution width Auto (Bld) [Entitic vol] Not Performed 1 *NA* (09/02/21 7:51 AM) Invalid Interpretation Code 0.00 - 20.00 AO Hematology S Comment on above: Result Comment: MDW testing performed only on adult ER patients between the ages of 18-89 years. VALPROIC ACIDon 07-16-2021 Valproic Acid 49.7 ug/mL Low 50.0-100.0 [facility] [place] [facility] Comment on above: Result Comment: Refe rence ranges and high/low indicator flags are provided as general guidelines only. The treating physician must determine appropriate target levels/dosing based on the specific clinical situation. [facility] [employer] [address] [place] [address] Carlito Cancino III, M.D. [id number] Performed By: #### 2 75923 #### [facility] [place] [facility],[address] [place] [address] 18773 VITAMIN D, 1,25 - DIHYDROXY [CCL]on 07-16-2021 Vit D,1,25 Dihydroxy 35.3 pg/mL Normal 19.9-79.3 [facility] [place] [facility] Comment on above: Result Comment: [facility] [employer] [address] [place] [address] Carlito Cancino III, M.D. [id number] Performed By: #### 2 63053 #### [facility] [place] [facility],[address] [place] [address] 69178 CBC + DIFFon 07-15-2021 Baso # 0.00 x10EE3/UL Normal 0.00 - 0.10 [facility] Comment on above: Performed By: #### 2 18658 #### [facility],[address] [place] [address] 02159 Basophils/100 WBC (Bld) 0.5 % Normal 0.0 - 2.0 [facility] Comment on above: Performed By: #### 2 35405 #### [facility] [place] [facility],[address] [place] [address] 77087 CBC + DIFF Normal [facility] Comment on above: Result Comment: CBC- COMPLETE BLOOD COUNT Performed By: #### 2 35271 #### [facility] [place] [facility],[address] [place] [address] 18968 EO # 0.20 x10EE3/UL Normal 0.00 - 0.50 [facility] Comment on above: Performed By: #### 2 42668 #### [facility],[address] [place] [address] 09675 Eosinophils/100 WBC (Bld) 3.2 % Normal 0.0 - 7.0 [facility] Comment on above: Performed By: #### 2 69234 #### [facility],[address] [place] [address] Erythrocyte distribution width (RBC) [Ratio] 12.5 % Normal 12.0 - 15.6 [facility] Comment on above: Performed By: #### 2 99749 #### [place] [address] Hematocrit (Bld) [Volume fraction] 44.5 % Normal 40.0 - 52.0 [facility] Comment on above: Performed By: #### 2 18349 #### [place] [address] Hemoglobin (Bld) [Mass/Vol] 15.5 g/dL Normal 13.0 - 17.5 [facility] Comment on above: Performed By: #### 2 12443 #### [place] [id number] Lymph # 2.50 x10EE3/UL Normal 0.80 - 2.80 [facility] Comment on above: Performed By: #### 2 81757 #### [place] [id number] Lymphocytes/100 WBC (Bld) 44.8 % Normal 20.0 - 45.0 [facility] Comment on above: Performed By: #### 2 41575 #### [place] [id number] MANUAL DIFF N/A Normal [facility] Comment on above: Performed By: #### 2 70222 #### [place] [id number] MCH (RBC) [Entitic mass] 32 pg Normal 27 - 33 [facility] Comment on above: Performed By: #### 2 81603 #### [facility],[address] [place] [address] 88716 MCHC 35 X10 3 Normal 32 - 36 [facility] Comment on above: Performed By: #### 2 35605 #### [facility],[address] [place] [address] 71770 MCV (RBC) [Entitic vol] 91 fL Normal 81 - 98 [facility] Comment on above: Performed By: #### 2 81562 #### [facility],[address] [place] [address] 20456 Gonzales # 0.50 x10EE3/UL Normal 0.20 - 1.00 [facility] Comment on above: Performed By: #### 2 00018 #### [facility],[address] [place] [address] 97806 MONOS % 8.5 % Normal 0.0 - 10.0 [facility] Comment on above: Performed By: #### 2 20507 #### [facility],[address] [place] [address] 36411 Morphology Arnulfo (Bld) [Interp] N/A Normal [facility] Comment on above: Performed By: #### 2 37024 #### [facility],[address] [place] [address] 43940 Neut # 2.40 x10EE3/UL Normal 1.50 - 7.10 [facility] Comment on above: Performed By: #### 2 86896 #### [facility],[address] [place] [address] 71483 Neutrophils/100 WBC (Bld) 43.0 % Low 46.0 - 76.0 [facility] Comment on above: Performed By: #### 2 15289 #### [facility],[address] [place] [address] 68916 PLATELET 249 x10EE3/UL Normal 150 - 450 [facility] Comment on above: Performed By: #### 2 46109 #### [facility],[address] [place] [address] 37849 Platelet mean volume (Bld) [Entitic vol] 8.6 fL Normal 6.4 - 10.5 [facility] Comment on above: Result Comment: AUTO MATED DIFFERENTIAL Performed By: #### 2 77557 #### [facility],[address] [place] [address] 95188 RBC 4.88 x 10EE6/UL Normal 4.50 - 6.00 [facility] Comment on above: Performed By: #### 2 17208 #### [facility],[address] [place] [address] WBC 5.5 x 10EE3/UL Normal 4.5 - 10.8 [facility] Comment on above: Performed By: #### 2 76981 #### [facility],[address] [place] [address] CMP with eGFRon 07-15-2021 AGE 26 years Normal [facility] Comment on above: Performed By: #### 2 39205 #### [place] [id number] Albumin [Mass/Vol] 3.6 g/dL Normal 3.4 - 5.0 [facility] Comment on above: Performed By: #### 2 40662 #### [place] [phone] Albumin/Globulin [Mass ratio] 1.1 {ratio} Normal 0.9 - 1.6 [facility] Comment on above: Performed By: #### 2 66045 #### [address] [address] ALK PHOS 68 U/L Normal 46 - 116 [facility] Comment on above: Performed By: #### 2 46030 #### [address] [address] ALT [Catalytic activity/Vol] 44 U/L Normal 16 - 63 [facility] Comment on above: Performed By: #### 2 92866 #### [facility],[address] [place] [address] 06506 Anion gap [Moles/Vol] 13 mmol/L Normal 10 - 20 [facility] Comment on above: Performed By: #### 2 01182 #### [facility],[address] [place] [address] 74426 AST [Catalytic activity/Vol] 19 U/L Normal 15 - 37 [facility] Comment on above: Performed By: #### 2 73711 #### [facility],[address] [place] [address] 19577 B/C RATIO 11 ratio Normal 0 - 30 [facility] Comment on above: Performed By: #### 2 03265 #### [facility],[address] [place] [address] 93085 Bilirubin [Mass/Vol] 0.3 mg/dL Normal 0.2 - 1.0 [facility] Comment on above: Performed By: #### 2 48029 #### [facility],[address] [place] [address] 69550 Calcium [Mass/Vol] 8.8 mg/dL Normal 8.5 - 10.1 [facility] Comment on above: Performed By: #### 2 52388 #### [facility],[address] [place] [address] 40142 Chloride [Moles/Vol] 103 mmol/L Normal 98 - 107 [facility] Comment on above: Performed By: #### 2 21098 #### [facility],[address] [place] [address] 01934 CMP with eGFR Normal [facility] Comment on above: Result Comment: COMP REHENSIVE METABOLIC PANEL Performed By: #### 2 60853 #### [facility],[address] [place] [address] 75738 CO2 [Moles/Vol] 31.3 mmol/L Normal 21.0 - 32.0 [facility] Comment on above: Performed By: #### 2 94584 #### [address] [address] Creatinine [Mass/Vol] 0.84 mg/dL Normal 0.70 - 1.30 [facility] Comment on above: Performed By: #### 2 07533 #### [address] [address] GFR/1.73 sq M.predicted among non-blacks MDRD (S/P/Bld) [Vol rate/Area] mL/min/{1.73_m2} Normal 60 - 999 [facility] Comment on above: Performed By: #### 2 62566 #### [address] [address] Result Comment: ACCO RDING TO THE NATIONAL KIDNEY DISEASE EDUCATION PROGRAM(NKDE), A NORMAL eGFR IS A VALUE GREATER THAN OR EQUAL TO 60 ML/MIN/1.73 SQ METERS. CHRONIC KIDNEY DISEASE: <60mL/MIN/1.73 SQ METERS KIDNEY FAILURE: <15mL/MIN/1.73 SQ METERS THIS TEST SHOULD ONLY BE USED FOR PATIENTS 18 YEARS OF AGE AND OLDER. Globulin (S) [Mass/Vol] 3.2 g/dL Normal 1.5 - 3.8 [facility] Comment on above: Performed By: #### 2 81761 #### [address] [address] Glucose [Mass/Vol] 81 mg/dL Normal 74 - 106 [facility] Comment on above: Performed By: #### 2 17757 #### [address] [address] Potassium [Moles/Vol] 4.6 mmol/L Normal 3.5 - 5.1 [facility] Comment on above: Performed By: #### 2 96983 #### [address] [place] [address] Protein [Mass/Vol] 6.8 g/dL Normal 6.4 - 8.2 [facility] Comment on above: Performed By: #### 2 31763 #### [facility],[address] [place] [address] 62389 Sodium [Moles/Vol] 143 mmol/L Normal 136 - 145 [facility] Comment on above: Performed By: #### 2 75502 #### [facility],[address] [place] [address] 70830 Urea nitrogen [Mass/Vol] 9 mg/dL Normal 7 - 18 [facility] Comment on above: Performed By: #### 2 76204 #### [facility],[address] [place] [address] 87727 FOLATESon 07-15-2021 FOLATES 17.3 ng/ml Normal 8.6 - 58.9 [facility] Comment on above: Performed By: #### 2 96302 #### [facility],[address] [place] [address] 27181 LIPID PROFILEon 07-15-2021 Cholesterol [Mass/Vol] 219 mg/dL Normal 0 - 240 [facility] Comment on above: Performed By: #### 2 53454 #### [facility],[address] [place] [address] 99781 Cholesterol in HDL [Mass/Vol] 30 mg/dL Low 40 - 60 [facility] Comment on above: Performed By: #### 2 84004 #### [facility],[address] [place] [address] 40766 Cholesterol in LDL [Mass/Vol] 138 mg/dL High 0 - 129 [facility] Comment on above: Performed By: #### 2 37616 #### [facility],[address] [place] [address] 40174 Cholesterol.total/Anneliese sterol in HDL [Mass ratio] 7.3 {ratio} High 0.0 - 5.0 [facility] Comment on above: Performed By: #### 2 62699 #### [facility],[address] [place] [address] 11212 Lipid 1996 panel Normal [facility] Comment on above: Result Comment: LIPI D PROFILE Performed By: #### 2 84645 #### [facility],[address] [place] [address] 83443 Triglyceride [Mass/Vol] 255 mg/dL High 0 - 150 [facility] Comment on above: Performed By: #### 2 86971 #### [facility],[address] [place] [address] 01170 TSHon 07-15-2021 TSH Qn 7.09 m[IU]/L High 0.35 - 3.74 [facility] Comment on above: Performed By: #### 2 20373 #### [facility],[address] [place] [address] 33383 VITAMIN B-12on 07-15-2021 Cobalamin (Vitamin B12) [Mass/Vol] 355 pg/mL Normal 193 - 986 [facility] Comment on above: Performed By: #### 2 02209 #### [facility],[address] [place] [address] 46536 VALPROIC ACIDon 05-28-2021 Valproic Acid 49.9 ug/mL Low 50.0-100.0 [facility] Comment on above: Result Comment: Refe rence ranges and high/low indicator flags are provided as general guidelines only. The treating physician must determine appropriate target levels/dosing based on the specific clinical situation. [facility] [employer] [address] [place] [address] Carlito Cancino III, M.D. [id number] Performed By: #### 2 29430 #### [facility],[address] [place] [address] 34267 VALPROIC ACIDon 03-31-2021 Valproic Acid 55.7 ug/mL Normal 50-100 [facility] Comment on above: Result Comment: Refe rence ranges and high/low indicator flags are provided as general guidelines only. The treating physician must determine appropriate target levels/dosing based on the specific clinical situation. [facility] [address] [place] [address] Carlito Cancino III, M.D. [id number] Performed By: #### 2 45563 #### [address] [address] Valproic Acidon 03-31-2021 Valproic Acid 55.7 ug/mL Normal 50-100 [facility] Comment on above: Performed By: #### Joel PA #### [facility] Routine Lab [address] [place] [phone] VALPROIC ACIDon 02-05-2021 Valproic Acid 43.8 ug/mL Low 50-100 [facility] Comment on above: Result Comment: Refe rence ranges and high/low indicator flags are provided as general guidelines only. The treating physician must determine appropriate target levels/dosing based on the specific clinical situation. [facility] [address] [place] [address] Carlito Cancino III, M.D. [id number] Performed By: #### 2 20116 #### [address] [address] Valproic Acidon 02-05-2021 Valproic Acid 43.8 ug/mL Low 50-100 [facility] Comment on above: Performed By: #### V PA #### [facility]ine [facility] [address] [place] [phone] HGB A1C [CCL]on 12-13-2020 Glucose [Mass/Vol] 105 mg/dL Normal [facility] Comment on above: Result Comment: eAG: (Estimated average glucose) is a calculated value from HgbA1c and is congressional representative of the average blood glucose level in the last 2-3 month period. [facility] [address] [place] [address] Carlito Cancino III, M.D. [id number] Performed By: #### 2 08752 #### [address] [address] HbA1c (Bld) [Mass fraction] 5.3 % Normal 4.3-5.6 [facility] Comment on above: Result Comment: [facility] Diabetes Association guidelines indicate that patients with HgbA1c in the range 5.7-6.4% are at increased risk for development of diabetes, and intervention by lifestyle modification may be beneficial. HgbA1c greater or equal to 6.5% is considered diagnostic of diabetes. Performed By: #### 2 58738 #### [address] [address] Hemoglobin A1con 12-13-2020 Glucose [Mass/Vol] 105 mg/dL Normal [facility] Comment on above: Performed By: #### V PA, HBA1C #### [facility] Routine Lab [address] [place] [address] HbA1c (Bld) [Mass fraction] 5.3 % Normal 4.3-5.6 [facility] Comment on above: Performed By: #### Joel HARDING, HBA1C #### [facility] Routine Lab [address] [place] [address] VALPROIC ACIDon 12-13-2020 Valproic Acid 39.4 ug/mL Low 50-100 [facility] Comment on above: Result Comment: Refe rence ranges and high/low indicator flags are provided as general guidelines only. The treating physician must determine appropriate target levels/dosing based on the specific clinical situation. [facility] [address] [place] [address] Carlito Cancino III, M.D. [id number] Performed By: #### 2 13972 #### [address] [address] Valproic Acidon 12-13-2020 Valproic Acid 39.4 ug/mL Low 50-100 [facility] Comment on above: Performed By: #### V PA, HBA1C #### [facility]ine [facility] [address] [place] [address] CBC (NO DIFF)on 12-10-2020 CBC panel Auto (Bld) Normal [facility] Comment on above: Result Comment: CBC( WITHOUT DIFFERENTIAL) Performed By: #### 2 65768 #### [facility] [place] [facility],[address] [place] [address] 19349 Erythrocyte distribution width (RBC) [Ratio] 12.6 % Normal 12.0 - 15.6 [facility] [place] [facility] Comment on above: Performed By: #### 2 94859 #### [facility] [place] [facility],[address] [place] [address] 03897 Hematocrit (Bld) [Volume fraction] 40.6 % Normal 40.0 - 52.0 [facility] Comment on above: Performed By: #### 2 52939 #### [facility],[address] [place] [address] 91282 Hemoglobin (Bld) [Mass/Vol] 14.4 g/dL Normal 13.0 - 17.5 [facility] [place] [facility] Comment on above: Performed By: #### 2 72995 #### [facility] [place] [facility],[address] [place] [address] 08019 MCH (RBC) [Entitic mass] 31 pg Normal 27 - 33 [facility] Comment on above: Performed By: #### 2 12356 #### [facility] [place] [facility],[address] [place] [address] 40322 MCHC 36 X10 3 Normal 32 - 36 [facility] [place] [facility] Comment on above: Performed By: #### 2 00413 #### [facility],[address] [place] [address] 75272 MCV (RBC) [Entitic vol] 87 fL Normal 81 - 98 [facility] Comment on above: Performed By: #### 2 04617 #### [facility] [place] [facility],[address] [place] [address] 76679 PLATELET 285 x10EE3/UL Normal 150 - 450 [facility] Comment on above: Performed By: #### 2 88470 #### [facility],[address] [place] [address] 54702 Platelet mean volume (Bld) [Entitic vol] 8.5 fL Normal 6.4 - 10.5 [facility] [place] [facility] Comment on above: Result Comment: {CB] Performed By: #### 2 98067 #### [facility],[address] [place] [address] 59833 RBC 4.66 x 10EE6/UL Normal 4.50 - 6.00 [facility] [place] [facility] Comment on above: Performed By: #### 2 87786 #### [facility],[address] [place] [address] 62450 WBC 6.3 x 10EE3/UL Normal 4.5 - 10.8 [facility] Comment on above: Performed By: #### 2 23179 #### [facility],[address] [place] [address] 79877 CMP with eGFRon 12-10-2020 AGE 25 years Normal [facility] Comment on above: Performed By: #### 2 74343 #### [facility],[address] [place] [address] 99649 Albumin [Mass/Vol] 3.5 g/dL Normal 3.4 - 5.0 [facility] Comment on above: Performed By: #### 2 50773 #### [facility],[address] [place] [address] 27183 Albumin/Globulin [Mass ratio] 1.0 {ratio} Normal 0.9 - 1.6 [facility] Comment on above: Performed By: #### 2 22059 #### [facility],[address] [place] [address] 30966 ALK PHOS 61 U/L Normal 46 - 116 [facility] Comment on above: Performed By: #### 2 77578 #### [facility],[address] [place] [address] 04564 ALT [Catalytic activity/Vol] 52 U/L Normal 16 - 63 [facility] Comment on above: Performed By: #### 2 35946 #### [facility],[address] [place] [address] 44121 Anion gap [Moles/Vol] 14 mmol/L Normal 10 - 20 [facility] Comment on above: Performed By: #### 2 00363 #### [facility],[address] [place] [address] 43373 AST [Catalytic activity/Vol] 26 U/L Normal 15 - 37 [facility] Comment on above: Performed By: #### 2 95304 #### [facility],[address] [place] [address] 64747 B/C RATIO 11 ratio Normal 0 - 30 [facility] Comment on above: Performed By: #### 2 59655 #### [facility] [place] [facility],[address] [place] [address] 69160 Bilirubin [Mass/Vol] 0.3 mg/dL Normal 0.2 - 1.0 [facility] [place] [facility] Comment on above: Performed By: #### 2 34552 #### [facility],[address] [place] [address] 71108 Calcium [Mass/Vol] 8.6 mg/dL Normal 8.5 - 10.1 [facility] Comment on above: Performed By: #### 2 83278 #### [facility],[address] [place] [address] 13412 Chloride [Moles/Vol] 103 mmol/L Normal 98 - 107 [facility] Comment on above: Performed By: #### 2 67533 #### [facility],[address] [place] [address] 66277 CMP with eGFR Normal [facility] Comment on above: Result Comment: COMP REHENSIVE METABOLIC PANEL Performed By: #### 2 47869 #### [facility],[address] [place] [address] 86632 CO2 [Moles/Vol] 27.6 mmol/L Normal 21.0 - 32.0 [facility] Comment on above: Performed By: #### 2 76641 #### [facility],[address] [place] [address] 21862 Creatinine [Mass/Vol] 0.93 mg/dL Normal 0.70 - 1.30 [facility] Comment on above: Performed By: #### 2 13160 #### [facility],[address] [place] [address] 35443 GFR/1.73 sq M.predicted among non-blacks MDRD (S/P/Bld) [Vol rate/Area] mL/min/{1.73_m2} Normal 60 - 999 [facility] Comment on above: Performed By: #### 2 05147 #### [facility],[address] [place] [address] 39210 Result Comment: ACCO RDING TO THE NATIONAL KIDNEY DISEASE EDUCATION PROGRAM(NKDE), A NORMAL eGFR IS A VALUE GREATER THAN OR EQUAL TO 60 ML/MIN/1.73 SQ METERS. CHRONIC KIDNEY DISEASE: <60mL/MIN/1.73 SQ METERS KIDNEY FAILURE: <15mL/MIN/1.73 SQ METERS THIS TEST SHOULD ONLY BE USED FOR PATIENTS 18 YEARS OF AGE AND OLDER. Globulin (S) [Mass/Vol] 3.6 g/dL Normal 1.5 - 3.8 [facility] Comment on above: Performed By: #### 2 [id number] #### [facility],[address] [place] [address] 56151 Glucose [Mass/Vol] 87 mg/dL Normal 74 - 106 [facility] Comment on above: Performed By: #### 2 52404 #### [facility],[address] [place] [address] 38312 Potassium [Moles/Vol] 3.6 mmol/L Normal 3.5 - 5.1 [facility] Comment on above: Performed By: #### 2 30879 #### [facility],[address] [place] [address] 93256 Protein [Mass/Vol] 7.1 g/dL Normal 6.4 - 8.2 [facility] Comment on above: Performed By: #### 2 42797 #### [facility],[address] [place] [address] 83324 Sodium [Moles/Vol] 141 mmol/L Normal 136 - 145 [facility] Comment on above: Performed By: #### 2 51439 #### [facility],[address] [place] [address] 58478 Urea nitrogen [Mass/Vol] 10 mg/dL Normal 7 - 18 [facility] Comment on above: Performed By: #### 2 47355 #### [facility],[address] [place] [address] 38151 LIPID PROFILEon 12-10-2020 Cholesterol [Mass/Vol] 203 mg/dL Normal 0 - 240 [facility] Comment on above: Performed By: #### 2 41190 #### [facility],[address] [place] [address] 06469 Cholesterol in HDL [Mass/Vol] 26 mg/dL Low 40 - 60 [facility] Comment on above: Performed By: #### 2 53987 #### [facility],[address] [place] [address] 91354 Cholesterol in LDL [Mass/Vol] 109 mg/dL Normal 0 - 129 [facility] Comment on above: Performed By: #### 2 55536 #### [facility],[address] [place] [address] 25551 Cholesterol.total/Anneliese sterol in HDL [Mass ratio] 7.8 {ratio} High 0.0 - 5.0 [facility] Comment on above: Performed By: #### 2 68204 #### [facility],[address] [place] [address] 41718 Lipid 1996 panel Normal [facility] Comment on above: Result Comment: LIPI D PROFILE Performed By: #### 2 55744 #### [facility],[address] [place] [address] 61997 Triglyceride [Mass/Vol] 341 mg/dL High 0 - 150 [facility] Comment on above: Performed By: #### 2 26684 #### [facility],[address] [place], [place] [id number] VALPROIC ACIDon 11-12-2020 Valproic Acid 47.7 ug/mL Low 50-100 [facility] Comment on above: Result Comment: Refe rence ranges and high/low indicator flags are provided as general guidelines only. The treating physician must determine appropriate target levels/dosing based on the specific clinical situation. [facility] [address] [place] [address] Carlito Cancino III, M.D. [id number] Performed By: #### 2 68930 #### [facility],[address] [place] [address] 59787 Valproic Acidon 11-12-2020 Valproic Acid 47.7 ug/mL Low 50-100 [facility] Comment on above: Performed By: #### V PA #### [facility] Routine Lab [address] [place], [place] [address] CULTURE URINEon 09-29-2020 CULTURE URINE CULTURE URINE _URINE CULTURE_ M I C R O B I O L O G Y R E P O R T FINAL Antimicrobial Susceptibility and Organism Identification Report Specimen Number : [id number] Requested : 09/29/20 Specimen Source : URINE Collected : 09/29/20 11:30 [place] of Isolation : OUTPATIENT Received : 09/29/20 11:30 Requesting Physician : DR. DUNCAN ------ Patient/Specimen Tests and Comments Specimen Comments FINAL REPORT: NO GROWTH AT 48 HOURS ------ Tech : Source : URINE ID # : [id number] FINAL Report Date : / / : Collected : 09/29/20 11:30 10/01/20.1221.KLS. 09/30/20.1204.KLS. 10/01/20.1222.KLS.Talentag PLETE Normal [facility] Comment on above: Performed By: #### 2 49403 #### [facility],[address] [place] [address] 84422 URINALYSISon 09-29-2020 Amorphous NONE Normal [facility] Comment on above: Performed By: #### 2 93947 #### [facility],[address] [place] [address] 61690 Bacteria NONE Normal [facility] Comment on above: Performed By: #### 2 55096 #### [facility],[address] [place] [address] 96120 Bilirubin Ql (U) Negative Normal NORMAL: NEGATIVE [facility] Comment on above: Performed By: #### 2 25034 #### [facility],[address] [place] [address] 73616 Casts NONE Normal [facility] Comment on above: Performed By: #### 2 97438 #### [facility],[address] [place] [address] 82363 Clarity (U) clear Normal NORMAL: CLEAR [facility] Comment on above: Performed By: #### 2 00118 #### [facility],[address] [place] [address] 65127 Color (U) p.yel Normal NORMAL: YELLOW [facility] Comment on above: Performed By: #### 2 21086 #### [facility],[address] [place] [address] 07275 Crystals LM Nom (Urine sed) NONE Normal [facility] Comment on above: Performed By: #### 2 95972 #### [facility],[address] [place] [address] 13888 Epi Cells NONE Normal [facility] Comment on above: Performed By: #### 2 28097 #### [facility],[address] [place] [address] 05010 Glucose Ql (U) 100 Abnormal NORMAL: NORMAL [facility] Comment on above: Performed By: #### 2 69187 #### [facility],[address] [place] [address] 69828 Hemoglobin Ql (U) 10 Abnormal NORMAL: NEGATIVE [facility] Comment on above: Performed By: #### 2 47246 #### [facility],[address] [place] [address] 02252 Ketone 5 Abnormal NORMAL: NEGATIVE [facility] Comment on above: Performed By: #### 2 29092 #### [facility],[address] [place] [address] 62294 Leukocytes 100 Abnormal NORMAL: NEGATIVE [facility] Comment on above: Performed By: #### 2 66985 #### [facility],[address] [place] [address] 17637 Mucous NONE Normal [facility] Comment on above: Performed By: #### 2 97617 #### [facility],[address] [place] [address] 03604 Nitrite Ql (U) Negative Normal NORMAL: NEGATIVE [facility] Comment on above: Performed By: #### 2 40691 #### [facility],[address] [place] [address] 24014 pH (U) 6.5 [pH] Normal NORMAL: 5.0-8.0 [facility] Comment on above: Performed By: #### 2 29841 #### [facility],[address] [place] [address] 24671 Protein Ql (U) 15 Abnormal NORMAL: NEGATIVE [facility] Comment on above: Performed By: #### 2 58771 #### [facility],[address] [place] [address] 84157 Rbc 0-5 Normal 0-3/hpf [facility] Comment on above: Performed By: #### 2 25756 #### [facility],[address] [place] [address] 95416 Sp Irmo 1.010 Normal NORMAL: 1.010-1.030 [facility] Comment on above: Performed By: #### 2 23351 #### [facility],[address] [place] [address] Specimen Type UNSPECIFIED Normal [facility] Comment on above: Performed By: #### 2 22405 #### [facility],[address] [place], [place] [id number] Urinalysis dipstick W Reflex Microscopic panel (U) SEE BELOW Normal [facility] Comment on above: Result Comment: MICR OSCOPIC Performed By: #### 2 31508 #### [facility],[address] [place] [address] Urobilinog NORM Normal NORMAL: NORMAL [facility] Comment on above: Performed By: #### 2 47202 #### [facility],[address] [place] [address] Wbc 6-10 Normal 0-5/hpf [facility] Comment on above: Performed By: #### 2 48695 #### [facility],[address] [place] [address] Yeast NONE Normal [facility] Comment on above: Performed By: #### 2 77279 #### [facility],[address] [place], [place] [id number] VALPROIC ACIDon 08-21-2020 Valproic Acid 40.4 ug/mL Low 50-100 [facility] Comment on above: Result Comment: Refe rence ranges and high/low indicator flags are provided as general guidelines only. The treating physician must determine appropriate target levels/dosing based on the specific clinical situation. [facility] [address] [place] [address] Carlito Cancino III, M.D. [id number] Performed By: #### 2 64775 #### [facility],[address] [place], [place] [address] Valproic Acidon 08-21-2020 Valproic Acid 40.4 ug/mL Low 50-100 [facility] Comment on above: Performed By: #### Joel PA #### [facility] Routine Lab [address] [place], [place] [address] Valproic Acidon 05-29-2020 Valproic Acid 43.9 ug/mL Low 50-100 [facility] Comment on above: Performed By: #### Joel PA #### [facility] Routine Lab [address] [place], [place] [address] CBC With Auto Diff.on 2016 Basophils Auto #/vol (Bld) 0.04 10*3/uL Normal 0.00-0.30 [facility] Comment on above: Order Comment: Regul atory Requirements State: Only Absolute Cell Counts are reported with their reference ranges. Performed By: #### C BC ####[facility] (DEFAULT)[address] [place] [address] 33936 Basophils/100 WBC Auto (Bld) 0.6 % Normal [facility] Comment on above: Order Comment: Regul atory Requirements State: Only Absolute Cell Counts are reported with their reference ranges. Performed By: #### C BC ####[facility] (DEFAULT)[address] [place] [address] 78108 Eosinophils 0.15 10*3/uL Normal 0.00-0.50 [facility] Comment on above: Order Comment: Regul atory Requirements State: Only Absolute Cell Counts are reported with their reference ranges. Performed By: #### C BC ####[facility] (DEFAULT)[address] [place] [address] 75870 Eosinophils/100 leukocytes 2.2 % Normal [facility] Comment on above: Order Comment: Regul atory Requirements State: Only Absolute Cell Counts are reported with their reference ranges. Performed By: #### C BC ####[facility] (DEFAULT)[address] [place] [address] 81846 Erythrocyte distribution width Auto Ratio (RBC) 12.0 % Normal 11.6-14.8 [facility] Comment on above: Order Comment: Regul atory Requirements State: Only Absolute Cell Counts are reported with their reference ranges. Performed By: #### C BC ####[facility] (DEFAULT)[address] [place] [address] 72891 Erythrocytes (RBC) 4.81 10*6/uL Normal 4.50-5.90 [facility] Comment on above: Order Comment: Regul atory Requirements State: Only Absolute Cell Counts are reported with their reference ranges. Performed By: #### C BC ####[facility] (DEFAULT)[address] [place] [address] 71601 Hematocrit (HCT) 43.4 % Normal [facility] Comment on above: Order Comment: Regul atory Requirements State: Only Absolute Cell Counts are reported with their reference ranges. Performed By: #### C BC ####[facility] (DEFAULT)[address] [place] [address] Hemoglobin mass conc (Bld) 15.1 g/dL Normal 13.5-17.5 [facility] Comment on above: Order Comment: Regul atory Requirements State: Only Absolute Cell Counts are reported with their reference ranges. Performed By: #### C BC ####[facility] (DEFAULT)[address] [place] [address] 95072 Ig% 0.3 % Normal 0.0-4.0 [facility] Comment on above: Order Comment: Regul atory Requirements State: Only Absolute Cell Counts are reported with their reference ranges. Performed By: #### C BC ####[facility] (DEFAULT)[address] [place] [address] 89416 Lymphocytes 1.66 10*3/uL Normal 0.90-4.00 [facility] Comment on above: Order Comment: Regul atory Requirements State: Only Absolute Cell Counts are reported with their reference ranges. Performed By: #### C BC ####[facility] (DEFAULT)[address] [place] [address] 54203 Lymphocytes variants/100 leukocytes 24.6 % Normal [facility] Comment on above: Order Comment: Regul atory Requirements State: Only Absolute Cell Counts are reported with their reference ranges. Performed By: #### C BC ####[facility] (DEFAULT)[address] [place] [address] 26337 MCH 31.4 pg Normal 26.0-34.0 [facility] Comment on above: Order Comment: Regul atory Requirements State: Only Absolute Cell Counts are reported with their reference ranges. Performed By: #### C BC ####[facility] (DEFAULT)[address] [place], [place] [address] MCHC mass conc (RBC) 34.8 g/dL Normal 31.0-37.0 [facility] Comment on above: Order Comment: Regul atory Requirements State: Only Absolute Cell Counts are reported with their reference ranges. Performed By: #### C BC ####[facility] (DEFAULT)[address] [place] [address] 44026 MCV 90 fL Normal 80-100 [facility] Comment on above: Order Comment: Regul atory Requirements State: Only Absolute Cell Counts are reported with their reference ranges. Performed By: #### C BC ####[facility] (DEFAULT)[address] [place] [address] 66327 Monocytes 0.55 10*3/uL Normal 0.30-0.90 [facility] Comment on above: Order Comment: Regul atory Requirements State: Only Absolute Cell Counts are reported with their reference ranges. Performed By: #### C BC ####[facility] (DEFAULT)[address] [place] [address] 81515 Monocytes/100 leukocytes 8.1 % Normal [facility] Comment on above: Order Comment: Regul atory Requirements State: Only Absolute Cell Counts are reported with their reference ranges. Performed By: #### C BC ####[facility] (DEFAULT)[address] [place] [address] 27107 Neutrophils 4.33 10*3/uL Normal [facility] Comment on above: Order Comment: Regul atory Requirements State: Only Absolute Cell Counts are reported with their reference ranges. Performed By: #### C BC ####[facility] (DEFAULT)[address] [place] [address] 06895 Neutrophils/100 WBC Auto (Bld) 64.2 % Normal [facility] Comment on above: Order Comment: Regul atory Requirements State: Only Absolute Cell Counts are reported with their reference ranges. Performed By: #### C BC ####[facility] (DEFAULT)[address] [place] [address] 35259 Platelet mean volume (PMV) 10.0 fL Normal 9.0-15.5 [facility] Comment on above: Order Comment: Regul atory Requirements State: Only Absolute Cell Counts are reported with their reference ranges. Performed By: #### C BC ####[facility] (DEFAULT)[address] [place] [address] 43043 Platelets 206 U/uL Normal 150-400 [facility] Comment on above: Order Comment: Regul atory Requirements State: Only Absolute Cell Counts are reported with their reference ranges. Performed By: #### C BC ####[facility] (DEFAULT)[address] [place] [address] 14653 WBC (Leukocytes) 6.75 10*3/uL Normal 4.50-11.00 [facility] Comment on above: Order Comment: Regul atory Requirements State: Only Absolute Cell Counts are reported with their reference ranges. Performed By: #### C BC ####[facility] (DEFAULT)[address] [place] [address] 25743 Valproic Acidon 03-17-2017 Valproic Acid 51.0 ug/ml Normal 50.0-100.0 [facility] Comment on above: Performed By: #### V AL ####[facility] (DEFAULT)[address] [place] [address] 25055 Comprehensive Metabolic Pane desiree 10-27-2016 Alanine aminotransferase (ALT) 25 U/L Normal 14-65 [facility] Comment on above: Performed By: #### C MP ####[facility] (DEFAULT)[address] [place] [address] 40383 Albumin 3.9 g/dL Normal 3.2-4.5 [facility] Comment on above: Performed By: #### C MP ####[facility] (DEFAULT)[address] [place] [address] 10925 Alkaline phosphatase (ALP) 82 U/L Normal 40-140 [facility] Comment on above: Performed By: #### C MP ####[facility] (DEFAULT)[address] [place] [address] 61961 Anion gap 13 mmol/L Normal 10-20 [facility] Comment on above: Performed By: #### C MP ####[facility] (DEFAULT)[address] [place] [address] 36995 Aspartate aminotransferase (AST) 12.0 U/L Normal 0.0-45.0 [facility] Comment on above: Performed By: #### C MP ####[facility] (DEFAULT)[address] [place] [address] 46075 Bilirubin Ql (U) 0.3 mg/dl Normal 0.0-1.3 [facility] Comment on above: Performed By: #### C MP ####[facility] (DEFAULT)[address] [place] [address] 07636 Calcium 9.1 mg/dL Normal 8.4-10.2 [facility] Comment on above: Performed By: #### C MP ####[facility] (DEFAULT)[address] [place] [address] 40501 Chloride 105 mmol/L Normal 98-108 [facility] Comment on above: Performed By: #### C MP ####[facility] (DEFAULT)[address] [place] [address] 30527 CO2 29.0 mmol/L Normal 21.0-32.0 [facility] Comment on above: Performed By: #### C MP ####[facility] (DEFAULT)[address] [place] [address] 54581 Creatinine 0.9 mg/dL Normal 0.4-1.1 [facility] Comment on above: Performed By: #### C MP ####[facility] (DEFAULT)[address] [place] [address] 56578 eGFR (MDRD) 106 ml/min/1.73m2 Normal 60-1000 [facility] Comment on above: Result Comment: The eGFR should be used for monitoring renal function only and not for medication dosing. Performed By: #### C MP ####[facility] (DEFAULT)[address] [place] [address] 53230 Glucose mass conc 91 mg/dL Normal 65-99 [facility] Comment on above: Performed By: #### C MP ####[facility] (DEFAULT)[address] [place] [address] 94236 Potassium molar conc 4.3 mmol/L Normal 3.5-5.1 [facility] Comment on above: Performed By: #### C MP ####[facility] (DEFAULT)[address] [place] [address] 60062 Protein 7.5 g/dL Normal 6.0-8.0 [facility] Comment on above: Performed By: #### C MP ####[facility] (DEFAULT)[address] [place] [address] 15475 Sodium 143 mmol/L Normal 135-145 [facility] Comment on above: Performed By: #### C MP ####[facility] (DEFAULT)[address] [place] [address] 86980 Urea nitrogen 9 mg/dL Normal 8-25 [facility] Comment on above: Performed By: #### C MP ####[facility] (DEFAULT)[address] [place] [address] 37292 Valproic Acidon 10-27-2016 Valproic Acid 52.0 ug/ml Normal 50.0-100.0 [facility] Comment on above: Performed By: #### V AL ####[facility] (DEFAULT)[address] [place] [address] 48648 Vital Signs Date Time Vital Sign Value Performing Clinician Facility 05-28-2024 16:31-0400 Body temperature 97.3 [degF] Edson Whyte APRN.[employer] Work Phone: [facility] 05-28-2024 16:31-0400 Body weight 86 kg Edson Whyte APRN.[employer] Work Phone: [facility] 05-28-2024 16:31-0400 Diastolic blood pressure 79 mm[Hg] Edson Whyte APRN.[employer] Work Phone: [facility] 05-28-2024 16:31-0400 Heart rate 97 /min Edson Whyte SALES AND MARKETING EXECUTIVE.[employer] Work Phone: [facility] 05-28-2024 16:31-0400 Respiratory rate 20 /min Edson Whyte SALES AND MARKETING EXECUTIVE.[employer] Work Phone: [facility] 05-28-2024 16:31-0400 SaO2% (BldA) [Mass fraction] 99 % Edson Whyte SALES AND MARKETING EXECUTIVE.[employer] Work Phone: [facility] 05-28-2024 16:31-0400 Systolic blood pressure 116 mm[Hg] Edson Whyte SALES AND MARKETING EXECUTIVE.[employer] Work Phone: [facility] 04-12-2024 09:09-0500 Body temperature 98 [degF] Matilde Pérez TIRE REPAIRER-C Work Phone: [facility] 04-12-2024 09:09-0500 Diastolic blood pressure 90 mm[Hg] Matilde Pérez TIRE REPAIRER-C Work Phone: [facility] 04-12-2024 09:09-0500 Heart rate 95 /min Matilde Pérez TIRE REPAIRER-C Work Phone: [facility] 04-12-2024 09:09-0500 Respiratory rate 16 /min Matilde Pérez TIRE REPAIRER-C Work Phone: [facility] 04-12-2024 09:09-0500 SaO2% (BldA) [Mass fraction] 100 % Matilde Pérez TIRE REPAIRER-C Work Phone: [facility] 04-12-2024 09:09-0500 Systolic blood pressure 125 mm[Hg] Matilde Pérez TIRE REPAIRER-C Work Phone: [facility] 04-12-2024 08:39-0500 Body mass index (BMI) [Ratio] 30.1 kg/m2 Matilde Pérez TIRE REPAIRER-C Work Phone: [facility] 04-12-2024 08:39-0500 Body weight 87.3 kg Matilde Pérez TIRE REPAIRER-C Work Phone: [facility] 04-12-2024 08:36-0500 Body height 170.18 cm Matilde Mendespkins TIRE REPAIRER-C Work Phone: [facility] 10-14-2023 10:09-0400 Body temperature 97.9 [degF] Arabella Luz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 primary doctor or pharmacist before taking any other medication not listed, including over the counter drugs, herbal medications, vitamins and or supplements as they may interact with your home medications. What How Much When Why Instructions Last Dose Unchanged acetylcysteine (NAC 500 mg oral capsule) 1 cap by mouth Three (3) times a day Unchanged cetirizine (All Day Allergy 10 mg oral tablet) 1 tab(s) by mouth Once a day Unchanged divalproex sodium (divalproex sodium 500 mg oral delayed release tablet) 1 tab(s) by mouth Two (2) times a day Duration: 90 Days Unchanged fenofibrate (TriCor 145 mg oral tablet) 1 tab(s) by mouth Once a day Hypertriglyceridemia Hypercholesterolemia Duration: 90 Days Unchanged FLUoxetine (FLUoxetine 10 mg oral capsule) 1 cap by mouth Once a day Duration: 90 Days Unchanged fluticasone nasal (fluticasone 50 mcg/ inh NASAL spray) 50 Microgram each nostril Once a day (in the morning) Duration: 90 Days Unchanged linaclotide (Linzess 145 mcg oral capsule) 1 cap by mouth Once a day before a meal Duration: 90 Days 30 minutes before breakfast. Do NOT crush/ chew Unchanged montelukast (montelukast 10 mg oral tablet) 1 tab(s) by mouth Once a day Duration: 90 Days Unchanged omeprazole (omeprazole 20 mg oral delayed release capsule) 1 cap by mouth Once a day Duration: 90 Days Unchanged paliperidone (paliperidone 3 mg oral tablet, extended release) 1 tab(s) by mouth Once a day (in the morning) Duration: 90 Days AT BEDTIME Unchanged QUEtiapine (QUEtiapine 400 mg oral tablet, extended release) 1 tab(s) by mouth Daily at bedtime Duration: 90 Days Please take this list to your next doctor s visit. Bring all medications you take, including over the counter medications, herbals and other supplements with you to your doctor s visit. Patients and families are reminded to discard old lists and to update any records with all medication providers or retail pharmacies. Education Materials Accidental Ingestion: Nontoxic (Adult) You have been evaluated and treated for accidentally taking too much of a medicine or swallowing a chemical product. There is no sign of toxic effect at this time. It's not likely that any new symptoms will appear. But, to be safe, watch for symptoms during the next 24 hours (see below). The symptoms will depend on what was swallowed. Home care If liquid charcoal was given to neutralize what was swallowed, Your stool may be black for 1 to 2 days. Usually, a laxative is given with charcoal. This speeds the removal of any toxins from the intestines. This may cause diarrhea for up to 24 hours. If you have been given charcoal but no laxative, you may become constipated. If this occurs, you may take an eyuu-vgc-gvxllus laxative. Prevention Keep medicines, pesticides, and other household chemicals in their original containers. Clearly vern all harmful products if a different bottle is used. Keep all substances in a safe place. In the future, if you or someone you know takes something possibly harmful, and you are not sure what to do, call the [place] [employer] [facility]. The phone number is [phone]. The phone line is staffed 24 hours a day. If you call, you will be connected to the poison control center closest to you. Follow-up care Follow up with your healthcare provider, or as advised. Call 911 Call 911 if any of these occur. Trouble breathing or swallowing, wheezing Severe confusion Extreme drowsiness or trouble awakening Fainting or loss of consciousness Rapid heart rate Very slow heart rate Very low or very high blood pressure Vomiting blood, or large amounts of blood in stool Seizure When to seek medical advice Call your healthcare provider right away if any of these occur. Shakiness Fast breathing (over 25 breaths per minute) or slow breathing (less than 8 breaths per minute) Shortness of breath Fever of 100.4 F (38 C) or higher, or as directed by your healthcare provider Vomiting or diarrhea for more than 24 hours Abdominal pain Dizziness or weakness [id number] [employer]. [address] [place] [address]. All rights reserved. This information is not intended as a substitute for professional medical care. Always follow your healthcare professional's instructions. Additional Information VACCINATE! IT SAVES LIVES! Members of the community who have not yet received the COVID-19 vaccine and would like to receive it can visit one of [facility] vaccine clinics. There are many vaccine clinic locations within the [facility]. For locations and available times, please visit [email or web address] [email or web address] It is important to note that some COVID mobile vaccine clinics are held outdoors and may be canceled in rainy or stormy conditions. To learn more about pediatric vaccinations (ages 5-11), we invite you to visit the [facility] webpage. https://www.[email or web address].org/p ages/4562-Frbyo-Ahytvtxngir-Freq enfmcy-Eibvx-Bciyropfe.html To learn more about the COVID-19 vaccine, we invite you to visit the CDC website for a list of frequently asked questions. https://www.cdc.gov/coronavirus/ 2019-ncov/vaccines/faq.html [employer] Patient Portal Access Instructions: Stay connected with your healthcare team and access your personal medical information anytime with the [employer] Patient Portal. If you would like a full copy of your medical records please contact the [facility] Medical Records Department Monday through Monday between 8a.m. and 4:30p.m. Please follow the directions below to access the portal: 1.Access the email account you provided upon registration to the [facility].2.Look for an invitation email from [facility].3.Open the email and access the invitation link: Accept Invitation to [employer]4.Fill in the required haile to create your account. Sign into [email or web address] with your username and password that you created in the above steps to stay up to date. You can then view a summary of results, a summary of your visits, and the ability to download your summaries to your computer or send the information securely to a physician. Remember that your healthcare information is confidential, so carefully consider who you will allow to register on the [employer] Patient Portal for access to your information. You can also access the [employer] Patient Portal on the [employer]. Simply click on Health Records under Health Data and then click on the [employer] logo. HOW TO SAFELY DISPOSE OF PRESCRIPTION MEDICATIONS Please use one of the following methods to safely dispose of your unused medications. 1.Use a drug disposal kit: the drug disposal pouch allows you to safely discard your old and unused drugs. Ask your nurse to give you one when you are discharged.2.Visit a local take-back location: Many local pharmacies and police departments have programs that collect old and unwanted prescription drugs. Call your local pharmacy or go to http://Studio Moderna.BeThereRewards/3I1Dv3h to find one close to you.3.Make use of household items: Use cat litter or old coffee grounds to dispose medications if other options are not available. Mix your drugs with these household products, seal them in an airtight container and throw it into the garbage. Call [facility]: [phone] to be sure your drugs can be disposed of in this way. Some medicines may require a different approach.4.Never flush your medications down the toilet. IF YOU HAVE BEEN PRESCRIBED AN OPIOIDS FOR PAIN If you have been prescribed an opioid (such as hydrocodone, oxycodone or morphine), it is critical to understand the possible side effects and risks of opioid pain medications. Even when taken as directed, opioids can have several side effects including: Tolerance, meaning you might need to take more of a medication for the same pain relief. Nausea, vomiting and/or constipation. Sleepiness, dizziness, dry mouth, confusion, depression or itching. Physical dependence, meaning you have withdrawal symptoms when a medication is stopped ? this can develop within a few days. KNOW YOUR RESPONSIBILITIES It is important to know exactly how much and how often to take the opioid pain medications you are prescribed. Never take opioids in higher amounts or more often than prescribed. Do not combine opioids with alcohol or other drugs that cause drowsiness, such as benzodiazepines, also known as benzos, including diazepam and alprazolam, muscle relaxants or sleep aids. Never sell or share prescription opioids. This is illegal. Store opioids in a secure place and out of reach of others (including children, family, friends and visitors). The last page(s) of this document has been signed and retained as a CHART COPY Signatures Patient Education Materials Overdose, Accidental (Adult) Medication Leaflets My discharge plan and instructions have been reviewed and explained to me and IARYA ROY A understand my current condition and have read and understand these discharge instructions. I have received a written copy of the plan/instructions. If I have questions, I am aware that I should contact my doctor. Patient/Store Operations Specialist Signature: Date/Time: Relationship to Patient: Witness Name/Signature: Date/Time: [facility] 07-04-2022 History of Present illness Narrative POPULATION HEALTH NAVIGATION OUTREACH Action/FYI RP Outreach: Patient Declined AARON consult. Patient Identified by Name and : YES, via [employer] Outreach Outcome/Action Spoke to patient / parent / legal guardian: Patient declined Did you use a PCP flex slot to schedule this appointment? No Reason for Outreach Care Gap or Scheduling/Wellness visits Payer: Payor: MEDICARE / Plan: MEDICARE A AND B / Product Type: Medicare / Care Gap Reviewed:: ORQ Reminder: Reminder note to check Health Maintenance for items below Health Maintenance items due: HEPATITIS B(1 of 3 - 3-dose series) Never done COVID-19 VACCINE(1) Never done HEPATITIS C SCREENING Never done HIV SCREENING Never done DTAP,TDAP,TD(1 - Tdap) Never done DEPRESSION ASSESSMENT Never done Navigation Signature: Carlita Ma July 04, 2022 10:07 AM documented in this encounter [facility] 06-29-2022 History of Present illness Narrative POPULATION HEALTH NAVIGATION OUTREACH Action/FYI RP Outreach: LVM for Patient to call back and schedule AARON Consult for Paronychia of great toe of left foot [L03.032]. [phone]. Any agent can assist. Patient Identified by Name and : YES, via [employer] Outreach Outcome/Action Unable to reach patient: Left message Did you use a PCP flex slot to schedule this appointment? No Reason for Outreach Care Gap or Scheduling/Wellness visits Payer: Payor: MEDICARE / Plan: MEDICARE A AND B / Product Type: Medicare / Care Gap Reviewed:: ORQ Reminder: Reminder note to check Health Maintenance for items below Health Maintenance items due: HEPATITIS B(1 of 3 - 3-dose series) Never done COVID-19 VACCINE(1) Never done HEPATITIS C SCREENING Never done HIV SCREENING Never done DTAP,TDAP,TD(1 - Tdap) Never done DEPRESSION ASSESSMENT Never done Navigation Signature: Carlita Ma June 29, 2022 11:28 AM documented in this encounter [facility] 06-16-2022 History of Present illness Narrative Images from the original note were not included. Subjective HPI Anna Koenig is a 27 year old male who presents with left great toe swelling, redness and pain, present for the past 2 weeks. There has been some drainage from the cuticle line. He has pain with walking. He has not used any medication for this at home. He has not had a fever. Review of Systems Constitutional: Negative for chills and fever. Musculoskeletal: Positive for joint pain. Negative for falls and myalgias. Skin: Negative for itching and rash. BP 122/82 Pulse 110 Temp 36.7 C (98 F) Resp 21 Wt 88.2 kg (194 lb 6.4 oz) SpO2 98% No past medical history on file. No past surgical history on file. ALLERGIES Patient has no known allergies. MEDICATIONS omeprazole (PRILOSEC) 20 mg capsule cetirizine (ZYRTEC) 10 mg tablet Take 10 mg by mouth once daily. divalproex ER (DEPAKOTE ER) 250 mg 24 hr tablet twice daily. FLUoxetine (PROZAC) 10 mg capsule fluticasone (FLONASE) 50 mcg/actuation nasal spray guanFACINE (TENEX) 1 mg tablet LINZESS 145 mcg capsule montelukast (SINGULAIR) 10 mg tablet paliperidone ER (INVEGA) 3 mg 24 hr tablet QUEtiapine XR (SEROQUEL XR) 400 mg 24 hr tablet cephALEXin (KEFLEX) 500 mg capsule Take 1 capsule by mouth three times daily for 7 days. guanFACINE (TENEX) 2 mg tablet (Patient not taking: Reported on 06/16/2022) No family history on file. Social History Tobacco Use Smoking status: Never Smokeless tobacco: Never Objective Physical Exam Vitals and nursing note reviewed. Constitutional: General: He is not in acute distress. Appearance: Normal appearance. Musculoskeletal: General: Swelling and tenderness present. No signs of injury. Left foot: Normal range of motion. No deformity. Feet: Feet: Left foot: Skin integrity: Erythema and warmth present. No ulcer, blister or skin breakdown. Toenail Condition: Left toenails are normal. Skin: Capillary Refill: Capillary refill takes less than 2 seconds. Findings: Erythema present. No bruising or rash. Neurological: Mental Status: He is alert. ASSESSMENT/PLAN: 1. Paronychia of great toe of left foot - ICD9: 681.11, ICD10: L03.032 - Begin treatment with Cephalaxin (Keflex) - warm water with epsom salt soaks twice daily until seen by podiatry. - CEPHALEXIN 500 MG CAPSULE - CONSULT TO PODIATRY - Follow-up with your PCP in 3-5 days if symptoms have not improved or sooner if symptoms worsen - Discussed red flags and need for immediate medical evaluation if any occur. - Discussed supportive care treatment with fluids, rest and analgesia. - Discussed expected course of illness Latesha Holguin APRN.CNP documented in this encounter [facility] 06-16-2022 Instructions Latesha Holguin APRN.CNP - 06/16/2022 12:07 PM EDT ASSESSMENT/PLAN: 1. Paronychia of great toe of left foot - ICD9: 681.11, ICD10: L03.032 - Begin treatment with Cephalaxin (Keflex) - warm water with epsom salt soaks twice daily until seen by podiatry. - CEPHALEXIN 500 MG CAPSULE - CONSULT TO PODIATRY - Follow-up with your PCP in 3-5 days if symptoms have not improved or sooner if symptoms worsen - Discussed red flags and need for immediate medical evaluation if any occur. - Discussed supportive care treatment with fluids, rest and analgesia. - Discussed expected course of illness Latesha Holguin APRN.CNP documented in this encounter [facility] Evaluation + Plan note No data available for this section [facility] Evaluation + Plan note Future Appointments Appointment Date:06/23/2023 09:00:00 AM Scheduled Provider:MATILDE PÉREZ APRN, CNP Location:[facility] Appointment Type:PC OV Follow Up Future Scheduled TestsThyroid Stimulating Hormone 06/24/23Free T4 06/24/23Lipid Profile 06/24/23Complete Metabolic Panel 06/24/23 [facility] Evaluation + Plan note Future Appointments Appointment Date:06/23/2023 09:00:00 AM Scheduled Provider:MATILDE PÉREZ APRN, CNP Location:[facility] Appointment Type:PC OV Follow Up [facility] Evaluation + Plan note Future Appointments Appointment Date:12/22/2023 09:20:00 AM Scheduled Provider:MATILDE PÉREZ APRN, CNP Location:[facility] Appointment Type:PC OV Follow Up [facility] Evaluation note Diagnosis Paronychia of great toe of left foot- Primary Onychia and paronychia of toe [facility] Diagnosis Skin infection- Primary Unspecified local infection of skin and subcutaneous tissue documented in this encounter [facility] note* Diagnosis Ingrowing toenail- Primary Ingrowing nail documented in this encounter [facility] noteNo assessment information availableWToledo Hospital Work Phone: Hospital Discharge instructions No data available for this section [facility] Progress note No data available for this section [facility] Reason for referral (narrative)No reason for referral information availableWToledo Hospital Work Phone: Summary Purpose Family History No Family History Records FoundNo Family History Records FoundNo Family History Records FoundNo Family History Records FoundNo Family History Records Found No data available for this section No data available for this section No Family History Records Found No data available for this section No Family History Records FoundNo Family History Records FoundNo Family History Records Found Advance Directives No Advanced Directives Records Found Advance Directive Response Recorded Date/ Time Living Will No April 12 9:43am Do you have a Healthcare Power of Fish Straightener? No April 12, 2024 9:43am Reason for Referral Specialty Diagnoses / Procedures Referred By Jess t Referred To Contact Podiatry Diagnoses Paronychia of great toe of left foot Procedures CONSULT TO PODIATRY OFFICE/OUTPATIENT [facility] MDM 60-74 MINUTES Latesha Holguin, ANALIA.[employer] [address] [place] [address] Referral ID Status Reason Start Date Expiration Date Visits Requested Visits Authorized [id number] Authorized PCP Requested Referral 06/16/2022 06/16/2023 1 1 Chief Complaint and Reason for Visit Chief Complaint Admit Date [facility] April 12, 2024 8 :36am Additional Source Comments (unrecognized sect ion and content) No Status Records FoundNo Status Records FoundNo Status Records FoundNo Status Records FoundNo Status Records FoundNo Status Records FoundNo Status Records FoundNo Status Records FoundNo Status Records Found INFORMATION SOURCE (unrecogn ized section and content) DATE CREATED AUTHOR 09/12/2017 [facility] DATE CREATED AUTHOR AUTHOR'S ORGANIZ ATION 09/13/2017 [facility] DATE CREATED AUTHOR AUTHOR'S ORGANIZ ATION 09/13/2017 [facility] DATE CREATED AUTHOR AUTHOR'S ORGANIZ ATION 04/01/2021 [facility] DATE CREATED AUTHOR AUTHOR'S ORGANIZ ATION 07/19/2021 [facility] DATE CREATED AUTHOR AUTHOR'S ORGANIZ ATION 10/26/2023 [facility] ([place]) DATE CREATED AUTHOR AUTHOR'S ORGANIZ ATION 05/31/2024 [facility] DATE CREATED AUTHOR AUTHOR'S ORGANIZ ATION 06/25/2024 [facility] DATE CREATED AUTHOR AUTHOR'S ORGANIZ ATION 08/13/2024 [facility] Care Team (unrecognized sect ion and content) Neuro Intensivist Physician Relationship Specialty Start Date End Date Matilde Pérez, [employer] [address] [place] [address] PCP - General Family Medicine 05/28/24 Team Status: Active Member Role Status Dates Matilde Pérez TIRE REPAIRER, TIRE REPAIRER-C Primary Care Provider Active Team Status: Inactive Member Role Status Dates Matilde Pérez TIRE REPAIRER, TIRE REPAIRER-C Primary Care Provider Active Start: March End: April 12, 2024 Dr. Harrison Crump DO Attending Provider Active Start: April 12, 2024 End: April 12, 2024 Dr. Harrison Crump DO Emergency Provider Active Start: April 12, 2024 End: April 12, 2024 Team Status: Inactive Member Role Status Dates Matilde Pérez TIRE REPAIRER, TIRE REPAIRER-C Primary Care Provider Active Start: May 092024 End: May 09, 2024 Dr. Mendez JOSHI MD Attending Provider Active Start: May 09, 2024 End: May 09, 2024 Team Status: Inactive Member Role Status Dates Matilde Pérez TIRE REPAIRER, TIRE REPAIRER-C Primary Care Provider Active Start: August 01, 2024 End: August 01, 2024 Dr. Mendez JOSHI MD Attending Provider Active Start: August 01, 2024 End: August 01, 2024 Dr. Mendez JOSHI MD Referring Provider Active Start: August 01, 2024 End: August 01, 2024 Care Team (unrecognized sect ion and content) Care Team Personnel Name: CHENTE LLOYD Member Role: Primary Care Physician Address: Address: [address] [place] [phone]- [place] Source Comments (unrecognize d section and content) In the event this informatio n is protected by the Federal Confidentiality of Alcohol and Drug Abuse Patient Records regulations: The Federal rules restrict any use of the information to criminally investigate or prosecute any alcohol or drug abuse patient.[facility] the event this information is protected by the Federal Confidentiality of Alcohol and Drug Abuse Patient Records regulations: The Federal rules restrict any use of the information to criminally investigate or prosecute any alcohol or drug abuse patient.[facility] the event this information is protected by the Federal Confidentiality of Alcohol and Drug Abuse Patient Records regulations: The Federal rules restrict any use of the information to criminally investigate or prosecute any alcohol or drug abuse patient.[facility] the event this information is protected by the Federal Confidentiality of Alcohol and Drug Abuse Patient Records regulations: The Federal rules restrict any use of the information to criminally investigate or prosecute any alcohol or drug abuse patient.[facility] Hospital[facility] the event this information is protected by the Federal Confidentiality of Alcohol and Drug Abuse Patient Records regulations: The Federal rules restrict any use of the information to criminally investigate or prosecute any alcohol or drug abuse patient.[facility] Reason for Visit (unrecogniz ed section and content) Reason Comments Ingrown Toenail Left big toe swollen /pain with discharge x 2 weeks Reason Comments Derm Problem Sore spot on L colla r bone x1 month Reason Comments Ingrown Toenail Left foot great, red ness, swelling x 1 day Goals (unrecognized section and content) Goals may be documented in a n alternate section FOR RECORDS PERTAINING TO PATIENTS WHO ARE OR HAVE BEEN ENROLLED IN A CHEMICAL DEPENDENCY/SUBSTANCEABUSE PROGRAM, SOME INFORMATION MAY BE OMITTED. This clinical summary was aggregated from multiple sources. Caution should be exercised in using it in the provision of clinical care. This summary normalizes information from multiple sources, and as a consequence, information in this document may materially change the coding, format and clinical context of patient data. In addition, data may be omitted in some cases. CLINICAL DECISIONS SHOULD BE BASED ON THE PRIMARY CLINICAL RECORDS. [employer] [facility]. provides no warranty or guarantee [id number] the accuracy or completeness of information in this document.
[2024-10-24 08:04] LABS: Hematocrit 36.6 % (40-54); Hemoglobin 12.1 g/dL (13.0-16.5); Mean Corp Hgb Conc 33.1 g/dL (32-36); Mean Corpuscular Volume 90.6 fL (80-94); Mean Platelet Vol. 9.9 fl (6.2-12.0); Platelet Count 299 K/mm3 (150-450); RBC Distribution Width CV 12.8 % (11.6-14.6); RBC Distribution Width SD 42.4 fl (35.1-43.9); Red Blood Count 4.04 M/mm3 (4.6-6.2); White Blood Count 5.0 K/mm3 (4.4-11.0)
[2024-10-24 08:47] LABS: Valproic Acid (Depakene) Level 51 ug/mL (50-100)
[2024-10-24 08:48] LABS: AST(SGOT) 20 U/L (<=37); Alanine Aminotransfer ALT/SGPT 19 U/L (<=46); Albumin, Serum 4.1 g/dL (3.5-5.0); Alkaline Phosphatase 50 U/L (40-129); Anion Gap 11 (5-15); BUN 15 mg/dL (4-19); BUN/Creat Ratio 13.7 RATIO (10-20); Calcium,Total 9.1 mg/dL (7.6-11.0); Carbon Dioxide 25.1 mmol/L (21.0-32.0); Chloride 103 mmol/L (98-108); Globulin 2.3 g/dL (2.2-4.2); Glucose 83 mg/dL (70-99); Potassium 3.7 mmol/L (3.3-5.1)
== END | disposition home or self-care (01) ==
LOC: LABSPEC 07:26
PROVIDERS: PCP Nurse Practitioner Family; Visit Provider Nurse Practitioner Psychiatric/Mental Health
DX: F90.9 Attention-deficit hyperactivity disorder, unspecified type (principal); F39 Unspecified mood [affective] disorder; F42.9 Obsessive-compulsive disorder, unspecified
CPT/HCPCS: 80053; 80164; 85027

== ENCOUNTER → 2025-01-23 | Outpatient (CLI) | payer MEDICARE, MEDICAID, SELFPAY ==
[2025-01-23 08:26] LABS: Hematocrit 41.4 % (40-54); Hemoglobin 13.3 g/dL (13.0-16.5); Mean Corp Hgb Conc 32.1 g/dL (32-36); Mean Corpuscular Volume 91.4 fL (80-94); Mean Platelet Vol. 10.3 fl (6.2-12.0); Platelet Count 328 K/mm3 (150-450); RBC Distribution Width CV 13.2 % (11.6-14.6); RBC Distribution Width SD 44.0 fl (35.1-43.9); Red Blood Count 4.53 M/mm3 (4.6-6.2); White Blood Count 4.9 K/mm3 (4.4-11.0)
[2025-01-23 08:38] LABS: AST(SGOT) 24 U/L (<=37); Alanine Aminotransfer ALT/SGPT 27 U/L (<=46); Albumin, Serum 4.5 g/dL (3.5-5.0); Alkaline Phosphatase 53 U/L (40-129); Anion Gap 11 (5-15); BUN 9 mg/dL (4-19); BUN/Creat Ratio 8.8 RATIO (10-20); Calcium,Total 9.6 mg/dL (7.6-11.0); Carbon Dioxide 25.2 mmol/L (21.0-32.0); Chloride 102 mmol/L (98-108); Globulin 2.6 g/dL (2.2-4.2); Glucose 136 mg/dL (70-99); Potassium 3.9 mmol/L (3.3-5.1)
== END | disposition home or self-care (01) ==
LOC: LABSPEC 08:13
PROVIDERS: PCP Nurse Practitioner Family; Referring Provider Registered Nurse; Visit Provider Registered Nurse
DX: F90.9 Attention-deficit hyperactivity disorder, unspecified type (principal)
CPT/HCPCS: 80053; 85027